=== PATIENT | female | born 1985 | race Caucasian/White ===

== ENCOUNTER 2020-06-09 09:12 | Outpatient (REF) | payer MEDICAID, SELFPAY | END 2020-06-09 09:13 | disposition home or self-care (01) | LOC: HO.MRI 09:12 | PROVIDERS: Visit Provider Family Medicine | DX: Z13.89 Encounter for screening for other disorder (principal) ==

== ENCOUNTER → 2020-07-06 12:30 | Outpatient (BNVA) | payer MEDICAID, SELFPAY | PROVIDERS: Visit Provider Orthopaedic Surgery | DX: M22.2X2 Patellofemoral disorders, left knee (principal); S83.242A Other tear of medial meniscus, current injury, left knee, initial encounter | CPT/HCPCS: 20610; 99202; J1040 ==

== ENCOUNTER 2020-07-24 12:41 | Emergency (ER) | payer OTHER, SELFPAY ==
[2020-07-24 13:00] VITALS: BP 142/80; PULSE 76; PULSE 77; RESP 20; TEMP 37.3; O2SAT 98; O2SAT 99; BMI 46.5
--- NOTE | 2020-07-24 13:27 | XR_ITS ---
EXAMINATION: XR KNEE, LEFT CLINICAL INFORMATION: Left knee pain status post fall, history of patellar fracture. COMPARISON: Left knee MRI dated 06/15/2020. TECHNIQUE: Four views of the left knee. FINDINGS: Mild tricompartmental degenerative joint changes are seen. An osseous density is again seen along the anterior margin of the distal femur. There is no acute fracture or dislocation. Trace patellar joint fluid is seen. Soft tissue fullness is seen without focal abnormality. XR/XR knee LT 4V IMPRESSION: Mild tricompartmental degenerative joint changes. Previously seen osseous fragment anterior to the distal femur appears similar to the MRI findings. No overt acute fracture. Trace suprapatellar joint effusion represents interval decrease from the previous MRI.
--- NOTE | 2020-07-24 13:27 | XR_ITS ---
EXAMINATION: XR ANKLE, LEFT CLINICAL INFORMATION: Left ankle pain status post fall. COMPARISON: None TECHNIQUE: AP, lateral, and mortise views of the left ankle. FINDINGS: The ankle joint and mortise are intact. There is no acute fracture or dislocation. The joint spaces are unremarkable. Small plantar and retrocalcaneal spurs are seen. The tarsal bones are normally aligned. There is moderate soft tissue swelling. XR/XR ankle LT min 3V IMPRESSION: Soft tissue swelling and small degenerative calcaneal spurs. No acute fracture.
[2020-07-24] MEDS: NaPROXEN 500 MG TABLET PO (14:03)
[2020-07-24] MEDS: HYDROcodone Bit/Acetam 5/325 TABLET 1 TAB PO (14:04)
--- NOTE | 2020-07-24 14:16 | ED.FALL ---
HPI - Fall General Chief Complaint: Fall Stated Complaint: FALL BACKWARDS,KNEE PAIN Time Seen by Provider: 07/24/20 13:09 Source: patient and EMS Mode of arrival: EMS Limitations: no limitations History of Present Illness HPI Narrative: 34yoF c PMHx of left knee fracture c tear of meniscus of left knee and Chronic back pain presenting to the ED via EMS after she had a fall [place] [employer] [place] she was walking did not notice that the floor was wet slipped and fell injuring her left knee where she already has the a hairline fracture and a tear of the meniscus along with left ankle injury. Denies head injury or loss of consciousness. Denies any other injuries complaints or concerns at this time. Related Data Home Medications Medication Instructions Recorded Confirmed bupropion HCl PO 07/05/20 gabapentin 100 mg capsule 100 mg PO DAILY 07/05/20 multivitamin 1 tab PO DAILY 07/06/20 Previous Rx's Medication Instructions Recorded naproxen 500 mg PO BID PRN #10 tab 07/24/20 oxycodone-acetaminophen [Percocet] 1 tab PO Q6H PRN #10 tab 07/24/20 Allergies Allergy/AdvReac Type Severity Reaction Status Date / Time No Known Allergies Allergy Unverified 05/06/20 17:07 [No Known Allergies*] Pt states no food/medication Allergy Unknown Uncoded 04/01/20 00:00 a Review of Systems Review of Systems: Constitutional : No changes in activity, No lethargy, No recent prior head injury, No agitation, No increased fussiness ENT/Mouth : No Ear Pain, No Nasal discharge/drainage Eyes: No Eye Pain, No Swelling, No Redness, No Foreign Body, No Vision Changes Cardiovascular : No Chest Pain, No SOB Respiratory : No Cough Gastrointestinal : No Nausea, No Vomiting, No abdominal Pain Genitourinary : No Dysuria, No Urinary Frequency, No Urinary Incontinence, No Urgency, No Flank Pain Musculoskeletal : + joint pain, No neck stiffness, No back pain/injury Skin : No lacerations Neuro : No unsteady gait, No Paresthesias, No Loss of Consciousness, No altered mental status, No Headache Yes all other systems are reviewed and are negative PMFSH Past Medical History Attestation statement: The following information was validated with the patient. 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 Blood pressure normal. Heart rate normal. Respiration rate normal. Temperature normal. Oxygen saturation normal. Appearance: Alert. Oriented X3. No acute distress. Head: Normal external exam. Normocephalic. Atraumatic. No Murphy signs noted. No raccoon eyes noted Eyes: PERRLA. EOMI. Conjunctiva and sclera normal. Eyelids normal. ENT:Pharynx normal. Uvula midline. Moist mucous membranes. Neck: Normal inspection. Neck supple. FROM. No adenopathy. No meningeal signs. No neck mass noted. CVS: Normal heart rate and rhythm. Heart sound normal. No murmurs noted. Pulses normal throughout. Respiratory: No respiratory distress. Painless inspiration. Breath sounds normal. No wheezes/rales/rhonchi noted. Chest nontender. No accessory muscle usage noted or decreased air movement noted. Abdomen: Soft and nontender. Bowel sounds normal in all 4 quadrants. No distention noted. No organomegaly noted. No visible injury noted. Back: Full range of motion noted. Skin: Skin warm and dry. Normal skin color. Normal skin turgor. No rashes/lesions/lacerations noted. Extremities: TTP of left knee at patellar region c mild sts and ecchymosis. Patient reports she has a left meniscus tear. Otherwise no other laxity noted. All other tendons and ligaments appear to be intact. Patient does not have any obvious deformities. No abrasions or lacerations noted. To left ankle lateral aspect there is mild soft tissue swelling with tender to palpation although patient has full range of motion and no obvious deformity ligaments and tendons appear to be intact. No lower extremity edema. Otherwise all other extremities exhibit normal range of motion and nontender. Neuro: Oriented X 3. No motor deficit. No sensory deficit. Reflexes normal. Course Course Course Narrative: 34yoF c PMHx of left knee fracture c tear of meniscus of left knee and Chronic back pain presenting to the ED via EMS after she had a fall [place] [employer] [place] she was walking did not notice that the floor was wet slipped and fell injuring her left knee where she already has the a hairline fracture and a tear of the meniscus along with left ankle injury. - x-ray of left knee obtained and revealed what was shown on her MRI which was the fracture. X-ray of left ankle reveals soft tissue swelling and chronic changes otherwise no acute processes noted. - therefore will DC home with symptomatic treatment along with instructions return if any new or worsening symptoms to follow-up with her primary care provider for further evaluation and treatment possibly an MRI due to she is concerned for tendons and ligaments. Patient understands agrees with this plan. MDM - Fall Medical Records Attestation: I reviewed the patient's medical records. Imaging Data left knee: Attestation: I personally reviewed and interpreted this imaging study as follows: Radiologist's impression: IMPRESSION: Mild tricompartmental degenerative joint changes. Previously seen osseous fragment anterior to the distal femur appears similar to the MRI findings. No overt acute fracture. Trace suprapatellar joint effusion represents interval decrease from the previous MRI. left ankle: Attestation: I personally reviewed and interpreted this imaging study as follows: Radiologist's impression: IMPRESSION: Soft tissue swelling and small degenerative calcaneal spurs. No acute fracture. Discharge Plan Discharge Clinical Impression: Fall Qualifiers: Encounter type: initial encounter Qualified Code(s): W19.XXXA - Unspecified fall, initial encounter Left knee sprain Qualifiers: Encounter type: initial encounter Involved ligament of knee: unspecified ligament Qualified Code(s): S83.92XA - Sprain of unspecified site of left knee, initial encounter Left ankle sprain Qualifiers: Encounter type: initial encounter Involved ligament of ankle: unspecified ligament Qualified Code(s): S93.402A - Sprain of unspecified ligament of left ankle, initial encounter Patient Disposition: Home, Self-Care Instructions: Ankle Sprain (ED), Knee Sprain (ED) Prescriptions: New oxycodone-acetaminophen [Percocet] 5-325 mg tablet 1 tab PO Q6H PRN (Reason: pain) Qty: 10 RF: 0 naproxen 500 mg tablet 500 mg PO BID PRN (Reason: pain) Qty: 10 RF: 0 Referrals: Ethel Krishnan DO [Primary Care Provider] - 2 days Stand Alone Forms: Work/School Release Print Language: Citizen Of [place]
== END 2020-07-24 15:40 | disposition home or self-care (01) ==
PROVIDERS: Emergency Provider Emergency Medicine Emergency Medical Services; PCP Family Medicine
DX: S83.92XA Sprain of unspecified site of left knee, initial encounter (principal); S93.402A Sprain of unspecified ligament of left ankle, initial encounter; W01.0XXA Fall on same level from slipping, tripping and stumbling without subsequent striking against object, initial encounter; Y93.89 Activity, other specified; Y92.512 Supermarket, store or market as the place of occurrence of the external cause; Y99.9 Unspecified external cause status
CPT/HCPCS: 73564; 73610; 99283

== ENCOUNTER → 2020-08-05 09:26 | Outpatient (BNVA) | payer MEDICAID, SELFPAY | PROVIDERS: PCP Family Medicine; Visit Provider Physician Assistant | DX: Z76.89 Persons encountering health services in other specified circumstances (principal) ==

== ENCOUNTER → 2020-08-09 11:30 | Outpatient (BNVA) | payer MEDICAID, SELFPAY | PROVIDERS: PCP Family Medicine; Visit Provider Physician Assistant | DX: Z76.89 Persons encountering health services in other specified circumstances (principal) ==

== ENCOUNTER → 2020-08-10 08:17 | Outpatient (BNVA) | payer MEDICAID, SELFPAY | PROVIDERS: PCP Family Medicine; Visit Provider Physician Assistant | DX: Z76.89 Persons encountering health services in other specified circumstances (principal) ==

== ENCOUNTER → 2020-08-24 08:12 | Outpatient (BNVA) | payer MEDICAID, SELFPAY | PROVIDERS: PCP Family Medicine; Visit Provider Dietitian, Registered | DX: Z76.89 Persons encountering health services in other specified circumstances (principal) ==

== ENCOUNTER → 2020-09-17 08:18 | Outpatient (BNVA) | payer MEDICAID, SELFPAY | PROVIDERS: PCP Family Medicine; Visit Provider Physician Assistant ==

== ENCOUNTER → 2020-10-13 08:13 | Outpatient (BNVA) | payer MEDICAID, SELFPAY | PROVIDERS: PCP Family Medicine; Visit Provider Physician Assistant ==

== ENCOUNTER → 2020-10-22 08:06 | Outpatient (BNVA) | payer MEDICAID, SELFPAY | PROVIDERS: PCP Family Medicine; Visit Provider Dietitian, Registered ==

== ENCOUNTER → 2020-10-27 09:11 | Outpatient (BNVA) | payer MEDICAID, SELFPAY | PROVIDERS: PCP Family Medicine; Visit Provider Physician Assistant ==

== ENCOUNTER → 2020-10-29 08:01 | Outpatient (BNVA) | payer MEDICAID, SELFPAY | PROVIDERS: PCP Family Medicine; Visit Provider Physician Assistant ==

== ENCOUNTER → 2020-11-11 09:58 | Outpatient (BNVA) | payer MEDICAID, SELFPAY | PROVIDERS: PCP Family Medicine; Visit Provider Dietitian, Registered ==

== ENCOUNTER → 2020-11-12 08:12 | Outpatient (BNVA) | payer MEDICAID, SELFPAY | PROVIDERS: PCP Family Medicine; Visit Provider Surgery ==

== ENCOUNTER → 2020-11-16 12:52 | Outpatient (BNVA) | payer MEDICAID, SELFPAY | PROVIDERS: PCP Family Medicine; Visit Provider Dietitian, Registered ==

== ENCOUNTER 2020-11-17 09:13 | Outpatient (REF) | payer MEDICAID, SELFPAY ==
--- NOTE | ~2020-11-17 | XR_ITS ---
EXAMINATION: XR CHEST CLINICAL INFORMATION: Obesity COMPARISON: Previous chest x-ray June 2019 TECHNIQUE: 2 views of the chest were obtained. FINDINGS: The cardiac and mediastinal contours are normal. The lungs are clear. There is no pleural effusion or pneumothorax. There are mild degenerative changes of the spine. XR/XR chest 2V IMPRESSION: No evidence for acute disease in the chest.
--- NOTE | 2020-11-17 09:35 | ECG_ITS ---
Test Reason : MORBID OBESITY Blood Pressure : / mmHG Vent. Rate : 061 BPM Atrial Rate : 061 BPM P-R Int : 150 ms QRS Dur : 094 ms QT Int : 388 ms P-R-T Axes : 038 045 018 degrees QTc Int : 390 ms Normal sinus rhythm with sinus arrhythmia Normal ECG When compared with ECG of 27-JUN-2019 22:26, QT has shortened Referred By: Uriel Baltazar Electronically Signed By:Adilson Louise
[2020-11-17 10:03] LABS: MANUAL DIFF FLAG NO
[2020-11-17 10:21] LABS: Basophils Absolute Auto 0.1 X10*3/uL (0.0-0.2); Basophils Percent Auto 0.6 % (0-2); Eosinophils Absolute Auto 0.2 X10*3/uL (0.0-0.4); Eosinophils Percent Auto 1.8 % (0-4); Hematocrit 41.6 % (37-47); Hemoglobin 13.4 g/dl (12.0-16.0); Imm Gran Abs Auto 0.02 X10*3/uL (0.00-0.03); Imm Gran Pct Auto 0.2 % (0.0-0.4); Lymphocytes Absolute Auto 3.2 X10*3/uL (1.2-4.9); Lymphocytes Percent Auto 36.6 % (20-40); Mean Corpuscular HGB Conc 32.2 g/dl (31.0-35.0); Mean Corpuscular Hemoglobin 27.3 pg (27.0-33.0); Mean Corpuscular Volume 84.7 fL (80-98); Mean Platelet Volume 8.5 fL (9.4-12.3); Monocytes Absolute Auto 0.6 X10*3/uL (0.1-1.2); Monocytes Percent Auto 6.3 % (2-11); Neutrophils Absolute Auto 4.8 X10*3/uL (2.0-8.3); Neutrophils Percent Auto 54.5 % (45-73); Platelet Count 351 X10*3/uL (160-400); Red Blood Count 4.91 X10*6/uL (4.20-5.50); Red Cell Distribution Width 14.4 % (11.0-16.0); White Blood Count 8.8 X10*3/uL (4.8-10.8)
[2020-11-17 10:28] LABS: Alanine Aminotransferase 39 U/L (0-31); Alkaline Phosphatase 65 U/L (39-117); Anion Gap 13 (12-20); Aspartate Amino Transferase 26 U/L (5-31); Bilirubin Total 0.4 mg/dL (0.0-1.0); Blood Urea Nitrogen 10 mg/dL (9-16); Calcium 9.1 mg/dL (8.4-10.2); Carbon Dioxide 25 mmol/L (22-29); Chloride 106 mmol/L (96-108); Cholesterol 170 mg/dL; Estimated Glomerular Filt Rate > 60; Glucose Random 100 mg/dL (60-115); HDL Cholesterol 45 mg/dL; Iron 45 mcg/dL (30-160); LDL Cholesterol Calculated 103 mg/dl; Percent Iron Saturation 12 % (15-50); Potassium 3.9 mmol/L (3.3-5.1); Sodium 140 mmol/L (135-145); Total Iron Binding Capacity 377 mcg/dL (228-428); Total Protein 7.5 g/dL (6.5-8.0); Triglycerides 110 mg/dL; Unsaturated Iron Binding 332 ug/dL
[2020-11-17 10:35] LABS: Estimated Average Glucose 100 mg/dL; Hemoglobin A1c % 5.1 %
[2020-11-17 10:53] LABS: Ferritin 12 ng/mL (10-122); TSH reflex Free T4 1.82 uIU/mL (0.32-4.0); Vitamin D 25-OH Total 44.5 ng/mL (>30)
[2020-11-17 10:54] LABS: Folate > 20.0 ng/mL (> or = 4.0); Vitamin B12 504 pg/mL (200-900)
[2020-11-18 09:51] LABS: Insulin Level Total 12.7 uIU/mL
[2020-11-18 17:31] LABS: Calcium (PTHI) 9.3 mg/dL (8.6-10.2); PTHI 36 pg/mL (14-64)
[2020-11-19 19:56] LABS: Zinc 85 mcg/dL (60-130)
[2020-11-20 01:07] LABS: Vitamin A 36 mcg/dL (38-98)
[2020-11-21 12:22] LABS: Vitamin B1 18 nmol/L (8-30)
== END 2020-11-17 09:14 | disposition home or self-care (01) ==
LOC: HO.LAB 09:13
PROVIDERS: Absent Provider Physician Assistant; PCP Family Medicine; Visit Provider Surgery
DX: Z00.01 Encounter for general adult medical examination with abnormal findings (principal); E66.01 Morbid (severe) obesity due to excess calories; Z68.35 Body mass index [BMI] 35.0-35.9, adult; Z98.890 Other specified postprocedural states; Z90.3 Acquired absence of stomach [part of]; Z98.84 Bariatric surgery status
CPT/HCPCS: 36415; 71046; 80053; 80061; 82306; 82607; 82728; 82746; 83036; 83525; 83540; 83970; 84425; 84443; 84590; 84630; 85025; 86140; 93005

== ENCOUNTER → 2020-12-03 08:20 | Outpatient (BNVA) | payer MEDICAID, SELFPAY | PROVIDERS: PCP Family Medicine; Visit Provider Surgery ==

== ENCOUNTER → 2020-12-06 10:12 | Outpatient (BNVA) | payer MEDICAID, SELFPAY | PROVIDERS: PCP Family Medicine; Visit Provider Physician Assistant ==

== ENCOUNTER → 2020-12-13 07:15 | Outpatient (BNVA) | payer MEDICAID, SELFPAY | PROVIDERS: PCP Family Medicine; Visit Provider Surgery ==

== ENCOUNTER 2021-04-09 17:20 | Emergency (ER) | payer MEDICAID, SELFPAY ==
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
[2021-04-09 17:40] VITALS: RESP 18; BMI 36.0
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
--- NOTE | 2021-04-09 18:40 | PC.NURSE ---
BHN referral made via Smart Sheet
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
[2021-04-09 20:13] LABS: COVID-19 Test Negative (Negative)
--- NOTE | 2021-04-09 20:20 | PC.NURSE ---
PT SITTING UPRIGHT ON CHAIR IN POD, RR EVEN UNLABORED, SKIN WPD, NAD, PT OFFERS NO ACUTE COMPLAINTS, PROVIDED W/ FOOD PER PT REQUEST. PT AWAITING BHN EVAL, AWARE/AGREEABLE TO PLAN OF CARE.
[2021-04-09 22:00] VITALS: RESP 18
--- NOTE | 2021-04-09 23:29 | PC.NURSE ---
PT IS BEING EVALUATED BY N AT THE MOMENT.
--- NOTE | 2021-04-10 00:05 | PC.NURSE ---
Pt was evaluated by ga. pt is clam and cooperative. Plan is for pt to be discharged home. Pt is being changed over at this time, awaiting a ride.
--- NOTE | 2021-04-10 00:13 | PC.NURSE ---
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 discharge paper work given and education.
== END 2021-04-10 00:16 | disposition home or self-care (01) ==
PROVIDERS: Nurse Practitioner Family; Emergency Provider Emergency Medicine
DX: F43.20 Adjustment disorder, unspecified (principal); F41.9 Anxiety disorder, unspecified; Z63.79 Other stressful life events affecting family and household; Z79.899 Other long term (current) drug therapy; Z20.822 Contact with and (suspected) exposure to COVID-19
CPT/HCPCS: 36415; 87635; 99284

== ENCOUNTER → 2021-04-28 08:10 | Outpatient (BNVA) | payer MEDICAID, SELFPAY | PROVIDERS: Visit Provider Physician Assistant Surgical ==

== ENCOUNTER → 2021-05-11 10:26 | Outpatient (BNVA) | payer MEDICAID, SELFPAY | PROVIDERS: PCP Family Medicine; Referring Provider Family Medicine; Visit Provider Physician Assistant Surgical | DX: E66.01 Morbid (severe) obesity due to excess calories (principal); Z68.43 Body mass index [BMI] 50.0-59.9, adult | CPT/HCPCS: 99212 ==

== ENCOUNTER → 2021-06-13 10:42 | Outpatient (BNVA) | payer MEDICAID, SELFPAY | PROVIDERS: PCP Family Medicine; Referring Provider Family Medicine; Visit Provider Physician Assistant Surgical | DX: E66.01 Morbid (severe) obesity due to excess calories (principal); Z68.43 Body mass index [BMI] 50.0-59.9, adult | CPT/HCPCS: 99212 ==

== ENCOUNTER → 2021-07-29 08:05 | Outpatient (BNVA) | payer MEDICAID, SELFPAY | PROVIDERS: PCP Family Medicine; Visit Provider Physician Assistant Surgical ==

== ENCOUNTER 2021-08-23 08:52 | Outpatient (REF) | payer MEDICAID, SELFPAY ==
[2021-08-23 11:09] LABS: Binax Internal Control QC Valid; Binax Lot number: 9864; Binax Now Covid-19 Ag Positive (Negative)
== END 2021-08-23 08:53 | disposition home or self-care (01) ==
LOC: HO.LAB 08:52
PROVIDERS: Visit Provider Internal Medicine
DX: Z20.822 Contact with and (suspected) exposure to COVID-19 (principal)
CPT/HCPCS: 36415; C9803

== ENCOUNTER 2021-12-13 07:23 | Outpatient (REF) | payer MEDICAID, SELFPAY ==
--- NOTE | ~2021-12-13 | XR_ITS ---
EXAMINATION: XR KNEE STANDING, BILATERAL XR KNEE, LEFT CLINICAL INFORMATION: Left knee pain. COMPARISON: None TECHNIQUE: AP bilateral knee standing. Left knee lateral and sunrise view. FINDINGS: BILATERAL AP KNEE: There is loss of medial compartment joint space both knees slightly greater on the left side with periarticular spurring in medial and lateral compartments. No bony fracture or dislocation. No lytic process. LEFT KNEE: There is a large osteophyte along the patellofemoral joint with minimal suprapatellar spurring. No fracture or loose body seen. XR/XR knee standing BI IMPRESSION: Significantly large enthesophyte along the patellofemoral joint space left knee. No loose bodies or fracture seen. Degenerative changes medial compartment both knees.
--- NOTE | ~2021-12-13 | XR_ITS ---
EXAMINATION: XR KNEE STANDING, BILATERAL XR KNEE, LEFT CLINICAL INFORMATION: Left knee pain. COMPARISON: None TECHNIQUE: AP bilateral knee standing. Left knee lateral and sunrise view. FINDINGS: BILATERAL AP KNEE: There is loss of medial compartment joint space both knees slightly greater on the left side with periarticular spurring in medial and lateral compartments. No bony fracture or dislocation. No lytic process. LEFT KNEE: There is a large osteophyte along the patellofemoral joint with minimal suprapatellar spurring. No fracture or loose body seen. XR/XR knee LT 2V IMPRESSION: Significantly large enthesophyte along the patellofemoral joint space left knee. No loose bodies or fracture seen. Degenerative changes medial compartment both knees.
== END 2021-12-13 07:24 | disposition home or self-care (01) ==
LOC: HO.HOSX 07:23
PROVIDERS: Visit Provider Physician Assistant
DX: M22.2X2 Patellofemoral disorders, left knee (principal); I10 Essential (primary) hypertension
CPT/HCPCS: 20610; 73560; 73565; 99212; J1040

== ENCOUNTER 2022-02-03 16:19 | Emergency (ER) | payer MEDICAID, SELFPAY ==
--- NOTE | ~2022-02-03 | US_ITS ---
EXAMINATION: US VENOUS ULTRASOUND WITH DOPPLER LOWER EXTREMITY, BILATERAL CLINICAL INFORMATION: Bilateral leg swelling. Evaluate for DVT. COMPARISON: Lower extremity vascular ultrasound 01/30/2020 TECHNIQUE: Ultrasound of the deep veins is performed from the hip to the calf with compression sonography and color and pulse Doppler assessment. Spectral analysis with color-flow imaging is performed. FINDINGS: RIGHT: There is normal venous compression and respiratory variation and augmented flow. The visualized common femoral vein, superficial femoral vein, profunda femoral vein, popliteal vein, and the trifurcation region shows no evidence of deep venous thrombosis. LEFT: There is normal venous compression and respiratory variation and augmented flow. The visualized common femoral vein, superficial femoral vein, profunda femoral vein, popliteal vein, and the trifurcation region shows no evidence of deep venous thrombosis. US/US venous duplex LE BI IMPRESSION: No evidence of DVT in the bilateral lower extremities.
[2022-02-03 16:25] VITALS: BP 146/92; PULSE 90; RESP 18; TEMP 36.8; O2SAT 96; BMI 45.9
--- NOTE | 2022-02-03 16:43 | ED.EXTPRO ---
HPI - Extremity Problem General Chief complaint: Extremity Problem Stated complaint: swollen feet/legs Time Seen by Provider: 02/03/22 16:41 Source: patient Mode of arrival: ambulatory Limitations: no limitations History of Present Illness HPI Narrative: This is a 36-year-old female with history of obesity, as well as leg swelling, for which she was formerly on Lasix, who complains of recent swelling in her feet. The patient previously had leg swelling but now notes swelling in her feet. 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 She denies any chest pain or shortness of breath. She denies any new pain in her legs. She talked her primary care physician recommended she come to the ED for rule out of DVT. She has had prior varicose vein procedures. She denies any history of hypertension or diabetes Related Data Home Medications Medication Instructions Recorded Confirmed bupropion HCl [Wellbutrin] PO 07/05/20 07/29/21 gabapentin 100 mg capsule 100 mg PO BID 07/05/20 07/29/21 multivitamin (Daily Multi-Vitamin) 1 tab PO DAILY 07/06/20 07/29/21 cholecalciferol (vitamin D3) 50 50 mcg PO DAILY 08/10/20 07/29/21 mcg (2,000 unit) capsule biotin 1 mg tablet 1 mg PO DAILY 12/10/20 07/29/21 Allergies Allergy/AdvReac Type Severity Reaction Status Date / Time No Known Allergies Allergy Verified 06/13/21 10:52 [No Known Allergies*] Review of Systems Review of Systems: Yes all other systems are reviewed and are negative Constitutional: Constitutional: Reports as per HPI and Denies fever(s) Eyes: Eyes: Reports as per HPI and Reports no additional eye complaints ENT: Reports system reviewed and no additional complaints, except as documented, Reports as per HPI, Denies nasal congestion, Denies nasal discharge and Denies sore throat Cardiovascular: Cardiovascular: Reports as per HPI, Denies chest pain and Denies dyspnea Respiratory: Respiratory: Reports as per HPI, Denies cough and Denies dyspnea Gastrointestinal: Gastrointestinal: Reports as per HPI, Denies abdominal pain, Denies diarrhea and Denies vomiting Genitourinary: Genitourinary: Reports as per HPI, Denies hematuria, Denies urinary frequency and Denies dysuria Musculoskeletal: Musculoskeletal: Reports no additional musculoskeletal complaints and Denies numbness Integumentary/Breasts: Skin/Breast: Reports as per HPI and Denies rash Neurologic: Reports as per HPI, Denies focal weakness and Denies numbness Psychiatric: Psychiatric: Reports no additional psychiatric complaints and Reports as per HPI Endocrine: Endocrine: Reports no additional endocrine complaints and Reports as per HPI Hematologic/Lymphatic: Hematologic/Lymphatic: Reports no additional hematologic/lymphatic complaints, Reports as per HPI and Reports other (No peripheral edema) Comments: Bilateral leg swelling, foot swelling PMFSH Past Medical History Medical History (Reviewed 12/13/21 @ 13:50 by Mary Ann Donahue [facility]) Anxiety Arthritis Cervical cancer Chronic back pain Depression Encounter for Essure implantation Hx gestational diabetes Snoring Surgical History (Reviewed 12/13/21 @ 13:50 by Mary Ann Donahue [facility]) History of breast augmentation History of tonsillectomy and adenoidectomy Previous section Family History Family History Mother No problems noted. Father No problems noted. Sister No problems noted. Sister No problems noted. Brother No problems noted. Brother No problems noted. Son No problems noted. Daughter No problems noted. 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 No actual edema noted to the feet rather the tissue is soft and findings seem consistent with obesity Neuro alert and oriented x 3, non focal MDM - Extremity (Nontraumatic) MDM Narrative Medical decision making narrative: Patient complains of swelling in her legs, is morbidly obese. No asymmetry of the legs. Patient is concerned that her feet seemed swollen however on exam I do not appreciate any edema in her feet rather I think they are largely to her obesity as skin is normal in color, soft to touch, not pitting overall. Bilateral ultrasound of legs was negative for DVT. Patient inquired about going back on a diuretic but at this point I do not believe she actually has edema, recommended a low carbohydrate diet, regular exercise, leg elevation, PCP follow-up Imaging Data Ultrasound venous bilateral lower extremities: Radiologist's impression: IMPRESSION: No evidence of DVT in the bilateral lower extremities. Discharge Plan Discharge Clinical Impression: Leg swelling Patient Disposition: Home, Self-Care Instructions: Leg Edema (ED) Additional Instructions: Try to keep your legs elevated as often as possible. Try to go on a low carbohydrate and get regular exercise, lose weight. Use compression stockings. Return for any new or worsened symptoms. Follow up with your primary care physician. Prescriptions: No Action biotin 1 mg Tablet 1 mg PO DAILY cholecalciferol (vitamin D3) 50 mcg (2,000 unit) capsule 50 mcg PO DAILY bupropion HCl PO gabapentin 100 mg capsule 100 mg PO BID multivitamin [Daily Multi-Vitamin] Tablet 1 tab PO DAILY Interventions: ED Discharge Assessment Last Done: 02/03/22 18:43 Discharge Date/Time: 02/03/22 18:44
== END 2022-02-03 18:44 | disposition home or self-care (01) ==
PROVIDERS: Emergency Provider Emergency Medicine; PCP Family Medicine
DX: M79.89 Other specified soft tissue disorders (principal); E66.01 Morbid (severe) obesity due to excess calories
CPT/HCPCS: 93970; 99283; 99284

== ENCOUNTER → 2022-03-14 12:50 | Outpatient (BNVA) | payer MEDICAID, SELFPAY | PROVIDERS: PCP Family Medicine; Visit Provider Physician Assistant | DX: M67.432 Ganglion, left wrist (principal) | CPT/HCPCS: 99202 ==

== ENCOUNTER → 2022-05-02 12:34 | Outpatient (BNVA) | payer MEDICAID, SELFPAY | PROVIDERS: PCP Family Medicine; Visit Provider Physician Assistant | DX: M67.432 Ganglion, left wrist (principal) | CPT/HCPCS: 99212 ==

== ENCOUNTER → 2022-07-12 11:50 | Outpatient (BNVA) | payer MEDICAID, SELFPAY | PROVIDERS: PCP Family Medicine; Visit Provider Orthopaedic Surgery | DX: M67.432 Ganglion, left wrist (principal) | CPT/HCPCS: 99212 ==

== ENCOUNTER → 2022-08-23 14:47 | Outpatient (BNVA) | payer MEDICAID, SELFPAY | PROVIDERS: PCP Family Medicine; Visit Provider Orthopaedic Surgery | DX: M67.432 Ganglion, left wrist (principal); R20.0 Anesthesia of skin | CPT/HCPCS: 99212 ==

== ENCOUNTER 2022-08-28 06:08 | Day surgery (SDC) | payer MEDICAID, SELFPAY ==
[2022-08-23 16:30] VITALS: BMI 45.9
[2022-08-28 06:18] VITALS: BMI 43.0
[2022-08-28 06:26] VITALS: BP 152/91; PULSE 86; RESP 16; TEMP 36.3; O2SAT 96
[2022-08-28 06:33] LABS: UPreg QC Valid YES; Urine Pregnancy NEGATIVE (NEGATIVE)
[2022-08-28] MEDS: Lactated Ringers 1,000 ML 50 ML IVCONT (06:43)
--- NOTE | 2022-08-28 07:23 | P.CONAN_ITS ---
[facility] Active Problems Active Problems: All Active Problems (Updated 08/23/22 @ 16:27 by Azalea Malin, RN) Patellofemoral pain syndrome of left knee (Acute) Tear of medial meniscus of left knee (Acute) Depression (Acute) Morbid obesity (Acute) Arthritis (Acute) Snoring (Acute) Laceration of left lower leg with tendon involvement (Acute) Morbid obesity (Acute) Adjustment disorder, unspecified (Acute) Vitamin A deficiency (Acute) Morbid obesity with BMI of 50.0-59.9, adult (Acute) Ganglion, left wrist (Acute) Ganglion cyst of volar aspect of left wrist (Acute) Numbness of left hand (Acute) Chronic back pain (Acute) Previous section (Acute) History of breast augmentation (Acute) Encounter for Essure implantation (Acute) Past Medical History Medical History (Updated 08/23/22 @ 16:27 by Azalea Malin, RN) Anemia Anxiety Arthritis Cervical cancer Chronic back pain Depression Encounter for Essure implantation Gout Hx gestational diabetes Obesity Snoring Family History Family History Mother No problems noted. Father No problems noted. Sister No problems noted. Sister No problems noted. Brother No problems noted. Brother No problems noted. Son No problems noted. Daughter No problems noted. Family history of problems with anesthesia: No Surgical History Surgical History History of breast augmentation History of tonsillectomy and adenoidectomy Previous section History of Problems with Anesthesia: No Social History Social History Are you a primary healthcare network pricing consultant to a significant other at home: No Do you presently have visiting nurse or other home services: No Patient Tobacco Use Status: Former Tobacco user Tobacco use type: Cigarette Use of substances other than those prescribed or required for medical reasons: No Advance Directives: No Advance Directives Information Provided: Yes Current occupational status: employed 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 Meds Allergies Allergy/AdvReac Type Severity Reaction Status Date / Time No Known Allergies Allergy Verified 08/23/22 15:28 [No Known Allergies*] Active Medications: Current Medications Lactated Ringer's (Lr) 1,000 mls @ 50 mls/hr IVCONT .Q20H LOW Last Admin: 08/28/22 06:43 Dose: 50 mls/hr Home Medications Medication Instructions Recorded Confirmed Last Taken Type gabapentin 100 mg capsule 100 mg PO BID 07/05/20 08/23/22 Unknown History multivitamin (Daily Multi-Vitamin 1 tab PO DAILY 07/06/20 08/23/22 Unknown History tablet) cholecalciferol (vitamin D3) 50 50 mcg PO DAILY 08/10/20 08/23/22 Unknown History mcg (2,000 unit) capsule biotin 1 mg tablet 1 mg PO DAILY 12/10/20 08/23/22 Unknown History bupropion HCl 300 mg 24 hr tablet, 1 tab PO QAM 08/23/22 08/23/22 Unknown History extended release ferrous sulfate 325 mg (65 mg 1 tab PO DAILY 08/23/22 08/23/22 Unknown History iron) tablet Exam Exam Date and Time: August 28, 2022 0723 Height,Weight and Vital Signs: Height 5 ft 10 in Weight 136.078 kg Last Vital Signs Temp 97.3 F 08/28/22 06:26 Pulse 86 08/28/22 06:26 Resp 16 08/28/22 06:26 BP 152/91 H 08/28/22 06:26 Pulse Ox 96 08/28/22 06:26 O2 Del Method 08/28/22 06:26 Pertinent Lab Results Pertinent Lab Results: Laboratory Tests 08/28/22 06:15 Urine Test NEGATIVE Airway Mallampati Class: III TM Dist: >3cm Neck ROM: Full Assessment and Plan Assessment Anesthesia Assessment: Anesthesia Plan Discussed and Chart Reviewed Final Anesthetic Review Family History of Problems with Anesthesia: No History of Problems with Anesthesia: No NPO: Yes ASA Class: III Final Preanesthetic Review: No Changes in Pt Med Stat, Meds/Allgs Chart Reviewed, Consent Obtained/Reviewed and Anes Risks/Benef Reviewed Patient Risk: Intermediate Procedure Risk: Low Anesthetic Plan Anesthetic Plan: GA Disposition: Standard PACU
--- NOTE | 2022-08-28 07:55 | MHC.SHP ---
Pre-Procedural Eval Section A Date of Service: 08/28/22 The patient is an INPATIENT: No Changes since office visit: No Cold of Flu in the past 2 weeks, No New Medical Problems, No Changes in Medication and No Patient answered all questions The History & Physical has been completed within 30 days and I have reviewed it.: Yes Section B Chief Complaint: Ganglion, left wrist Allergies: Allergies Allergy/AdvReac Type Severity Reaction Status Date / Time No Known Allergies Allergy Verified 08/23/22 15:28 [No Known Allergies*] Plan I have reviewed the history and physical and performed a pertinent physical examination on my patient. No changes have occurred unless specified. Time Spent With Patient Time: Total time managing care of this patient today ____ minutes.
--- NOTE | 2022-08-28 07:56 | W.PM.OPN ---
Operative Note Operative Note Date of Service: 08/28/22 Narrative: Operative Note Narrative: Preop diagnosis: 1. left Volar wrist ganglion Postop diagnosis: 1. Left volar wrist mass Procedure: 1. left Volar wrist mass excision Surgeon: Kirti Farrell MD Anesthesia: General Anesthesia Findings: approximately 1 cm diameter yellow fatty mass, possible lipoma. No ganglion was found. Implants: None Tourniquet time: 5 minutes EBL: 5.0 ml Specimen: Volar wrist mass Drains: None Complications: None Disposition: Brought to the recovery room in stable condition Plan: Follow-up in 10-14 days for wound check, suture removal and to check pathology Indications: The patient is 36 years old with her left volar wrist mass . The risks and benefits of operative treatment, including but not limited to risk of damage to blood vessels, nerves, tendons, infection, recurrence, persistent pain or numbness, incomplete resolution of preoperative symptoms, or need for further surgery were discussed with the patient and they wished to proceed with surgery. Procedure: Once consent was obtained patient was brought back to the operating suite and placed in the operating table in a supine position. A regional block was performed by the anesthesia team. Perioperative antibiotics and anesthesia was administered by the anesthesia team. A tourniquet was applied to the proximal aspect of the left upper extremity and the limb was prepped and draped in a standard surgical fashion. The limb was elevated exsanguinated with Esmarch bandage and the tourniquet inflated to 250 mm of mercury for a total tourniquet time of 5 minutes. a 1.5 cm transverse incision was made directly over the mass, which was over the volar aspect of the patient's left wrist in line with the palmaris longus tendon. Incision was made through the skin to the subcutaneous tissues using a 15. Blade. There we appreciated a mass of yellow fat that measured approximately 1 cm in diameter. It was rather easily dissected free from the surrounding tissue, and there was no evidence of nerve or neuroma within the mass. The mass was excised and placed on the back table to be sent for histopathology. No other masses were appreciated in the area. At this point the tourniquet was deflated and hemostasis obtained with a brief period of local pressure. The wound was copiously irrigated with normal saline. The skin edges were reapproximated with 5-0 nylon suture. The wound was infiltrated with some 0.5% plain ropivacainefor postop pain control and a sterile dressing was applied. The patient appears to have tolerated the procedure well and with no complications. All digits were well vascularized conclusion of the case.
[2022-08-28 08:36] VITALS: BP 126/88; PULSE 79; RESP 16; TEMP 36.6; O2SAT 98
[2022-08-28 08:41] VITALS: BP 119/86; PULSE 68; RESP 16; O2SAT 98
[2022-08-28 08:46] VITALS: BP 117/80; PULSE 72; RESP 16; O2SAT 99
[2022-08-28 08:51] VITALS: BP 125/80; PULSE 78; RESP 16; O2SAT 95
[2022-08-28 09:06] VITALS: BP 117/79; PULSE 76; RESP 16; TEMP 36.6; O2SAT 96
== END 2022-08-28 09:46 | disposition home or self-care (01) ==
PROVIDERS: Anesthesiology; PCP Family Medicine; Visit Provider Orthopaedic Surgery
PROC: (CPT 11402; principal; 2022-08-28 07:30)
DX: R22.32 Localized swelling, mass and lump, left upper limb (principal); R20.0 Anesthesia of skin; D64.9 Anemia, unspecified; M10.9 Gout, unspecified; Z87.891 Personal history of nicotine dependence; Z79.899 Other long term (current) drug therapy
CPT/HCPCS: 11402; 81025; 88304; J0171; J0690; J1100; J2250; J2405; J2795; J3010

== ENCOUNTER → 2022-08-29 11:29 | Outpatient (BNVA) | payer MEDICAID, SELFPAY | PROVIDERS: PCP Family Medicine; Visit Provider Physician Assistant | DX: S83.242D Other tear of medial meniscus, current injury, left knee, subsequent encounter (principal); M22.2X2 Patellofemoral disorders, left knee | CPT/HCPCS: 20610; 99212; J1020 ==

== ENCOUNTER → 2022-09-12 15:24 | Outpatient (BNVA) | payer MEDICAID, SELFPAY | PROVIDERS: PCP Family Medicine; Visit Provider Orthopaedic Surgery | DX: Z13.89 Encounter for screening for other disorder (principal) ==

== ENCOUNTER 2023-04-12 11:03 | Outpatient (AMB) | payer MEDICAID, SELFPAY ==
[2023-04-12 11:03] VITALS: BP 140/86; PULSE 92; O2SAT 96; BMI 47.1
--- NOTE | 2023-04-12 11:03 | MHC.OFFVIS ---
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 Pt states she has them in both legs but her left is worse than her right. She states since she has been walking more lately she notices they have goe down in size a little bit. She states they aren't really painful but whn she walks a lot her legs feel heavy. Pt denies any numbness or tingling in her legs or feet. 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 Complaints include pain over varicosities, swelling of lower extremities, cramping, fatigue, and heaviness of the lower extremities. 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 It is noted more so in left leg. Patient notes prior venous ablation is by Dr. Alverto No at [facility] Patient denies any history of DVT/ PE. Patient denies any history of phlebitis. Trial of compression includes - prescription compression that her open toed They now present for vascular evaluation regarding their varicose veins. [facility] Medical History Anemia Anxiety Arthritis Cervical cancer Chronic back pain Depression Encounter for Essure implantation Gout Hx gestational diabetes Obesity Snoring Surgical History History of breast augmentation History of tonsillectomy and adenoidectomy Previous section Family History Mother No problems noted. Father No problems noted. Sister No problems noted. Sister No problems noted. Brother No problems noted. Brother No problems noted. Son No problems noted. Daughter No problems noted. 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 Review of Systems Const Reports as per HPI ENT Reports no additional complaints Card Denies chest pain, Denies chest pain at rest and Denies chest pain with activity Resp Denies chest congestion and Denies cough GI Reports no additional complaints Musc Details: pain over varicosities, aching of lower extremities, swelling, cramping, heaviness and tiredness, itching Denies abnormal gait Skin/Breast Reports pruritus and Denies wounds Neuro Reports no additional complaints and Denies abnormal gait Psych Denies no additional complaints Physical Exam Vital Signs: Last Vital Signs Pulse 92 04/12/23 11:03 BP 140/86 H 04/12/23 11:03 Pulse Ox 96 04/12/23 11:03 Oxygen Delivery Method Room Air 04/12/23 11:03 BMI result Body Mass Index 47.1 Const General: cooperative, healthy appearing and comfortable Orientation/consciousness: oriented to person, oriented to place and oriented to time Neck Carotids: no bruits Chest Chest palpation & inspection: normal inspection of the chest and normal palpation of entire chest wall Resp Effort & Inspection: normal respiratory effort and able to speak in complete sentences Cardio Rate: regular rate Heart sounds: S1 normal heart sound present and S2 normal heart sound present Peripheral pulses: Peripheral pulses 2+ throughout GI Inspection: Yes normal to inspection Skin Other: +2 edema, large rope-like varicosities greater than 4 mm CEAP Classification C4 - skin color changes Ep - Etiology Primary As - superficial veins P - reflux General skin exam: dry skin Neuro General: oriented to person, oriented to place and oriented to time Extrem Right lower extremity: full ROM, normal capillary refill and edema Left lower extremity: full ROM, normal capillary refill and edema Psych Mental Status: mental status grossly normal Assessment & Plan Assessment & Plan (1) Varicose veins of left lower extremity with inflammation: Code(s): I83.12 - Varicose veins of left lower extremity with inflammation Plan: In short, the patient has evidence of venous insufficiency. I have discussed the pathophysiology with the patient. In addition I have provided informational material regarding venous disease to the patient. We have discussed conservative measures including compression, elevation, and exercise. I have also provided a handout regarding appropriate use of compression stockings and where to purchase good compression stockings as well. I have taken the liberty of ordering venous insufficiency testing with the patient. They will follow up with me after testing. The patient had an opportunity to ask questions regarding the treatment plan. All questions were answered. Imaging studies, laboratory studies and physical exam results were discussed and reviewed in detail. No major barriers to understanding were identified. The patient expressed understanding and agreement with the above treatment plan. The patient is aware they should contact our office by phone for worsening of the current condition or the appearance of new symptoms. Thank you for allowing me to participate in the vascular care of this patient. If you have any questions or concerns regarding the treatment for the above condition please do not hesitate to contact me. The office telephone contact is [phone]. This note is constructed using voice recognition software. While every effort has been made to ensure accuracy, hvac operations technician errors may have been included. Thank you for allowing me to participate in the care of your patient. Yours sincerely, Charli Huston MD, FACS, R.P.V.I. Orders: Orders US venous duplex LE BI 1 Week I83.12 - Varicose veins of left lower extremity with inflammation Coding Level of Care Code New Pt Level 4 (45108) Diagnoses Varicose veins of left lower extremity with inflammation I83.12
== END 2023-04-12 11:26 | disposition home or self-care (01) ==
PROVIDERS: PCP Family Medicine; Visit Provider Surgery Vascular Surgery
DX: I83.12 Varicose veins of left lower extremity with inflammation (principal)
CPT/HCPCS: 99203

== ENCOUNTER → 2023-04-12 11:03 | Outpatient (BNVA) | payer MEDICAID, SELFPAY | PROVIDERS: PCP Family Medicine; Visit Provider Surgery Vascular Surgery | DX: I83.12 Varicose veins of left lower extremity with inflammation (principal) | CPT/HCPCS: 99202 ==

== ENCOUNTER 2023-04-26 10:16 | Outpatient (REF) | payer MEDICAID, SELFPAY ==
--- NOTE | ~2023-04-26 | US_ITS ---
EXAMINATION: US LOWER EXTREMITY VENOUS (REFLUX EXAM), BILATERAL CLINICAL INDICATION: Varicose veins of the left lower extremity COMPARISON: None. TECHNIQUE: Color flow triplex imaging and compression Doppler was performed to evaluate both the deep and the superficial systems bilaterally. To evaluate the superficial system, the examination was performed in the upright position. Color-flow Doppler ultrasound and compression ultrasound were utilized. In addition, maneuvers were utilized to demonstrate reflux. FINDINGS: RIGHT: 1. DEEP VENOUS ULTRASOUND OF THE RIGHT LOWER EXTREMITY: Common Femoral Vein: Compressible, normal respiratory variation and augmented flow. Popliteal Vein: Compressible, normal augmentation. Deep Venous Reflux: There is no evidence of reflux in the deep system in either the common femoral vein or the popliteal vein. There is no evidence of a Mauro's cyst. 2. SUPERFICIAL ULTRASOUND WITH DOPPLER OF RIGHT LOWER EXTREMITY: RIGHT GREAT SAPHENOUS VEIN: Saphenofemoral Junction: 11 mm. No reflux. Proximal Thigh: 6 mm. No reflux. Mid Thigh: 6 mm. No reflux. Above Knee: 5 mm. No reflux. Below Knee: 4 mm. No reflux. Mid Calf: 5 mm. No reflux. Ankle: 5 mm. No reflux. DUPLICATED GREAT SAPHENOUS VEIN: Yes, laterally. RIGHT SMALL SAPHENOUS VEIN: Proximal: 4 mm. No reflux. Distal: 3 mm. No reflux. LEFT: 1. DEEP VENOUS ULTRASOUND OF THE LEFT LOWER EXTREMITY: Common Femoral Vein: Compressible, normal respiratory variation and augmented flow. Popliteal Vein: Compressible, normal augmentation. Deep Venous Reflux: There is no evidence of reflux in the deep system in either the common femoral vein or the popliteal vein. There is no evidence of a Mauro's cyst. 2. SUPERFICIAL ULTRASOUND WITH DOPPLER OF LEFT LOWER EXTREMITY: LEFT GREAT SAPHENOUS VEIN: Saphenofemoral Junction: 8 mm. No reflux. Proximal Thigh: Not seen mm. Mid Thigh: Not seen mm. Above Knee: Not seen mm. Below Knee: Not seen mm. Mid Calf: Not seen mm. Ankle: Not seen mm. DUPLICATED GREAT SAPHENOUS VEIN: Yes, medially. Saphenofemoral junction: 4 mm. No reflux Mid thigh: 4 mm. No reflux LEFT SMALL SAPHENOUS VEIN: Proximal: 3 mm. 3496 ms reflux. Distal: 2 mm. No reflux. US/US venous duplex LE BI IMPRESSION: 1. No evidence of bilateral lower extremity DVT. 2. Prolonged reflux within the left small saphenous-popliteal junction. Abnormal lower extremity venous reflux times: Superficial and deep calf veins: >500 ms Femoropopliteal veins: >1000 ms Perforating veins: >350 ms Labkirill N, Chidi J, Hardy L, Tejas AK, Danis SS, Helen Mims M, Zunilda WH. Definition of venous reflux in lower-extremity veins.J Vasc Surg. 2003; [id number].
== END 2023-04-26 10:17 | disposition home or self-care (01) ==
LOC: HO.US 10:16
PROVIDERS: PCP Family Medicine; Visit Provider Surgery Vascular Surgery
DX: I83.12 Varicose veins of left lower extremity with inflammation (principal)
CPT/HCPCS: 93970

== ENCOUNTER 2023-06-07 10:49 | Outpatient (AMB) | payer MEDICAID, SELFPAY ==
--- NOTE | 2023-06-07 10:59 | MHC.OFFVIS ---
Intake Vital Signs 06/07/23 11:00 Height 5 ft 10 in Weight 328 lb BMI 47.1 Intake Visit Reasons: venous duplex fu Intake Note: follow up US bilateral LE 04/26/2023 for VV bilateral LE, Left LE worse than Right LE. Hx of Ablation by [facility] Dr. Alverto No. Pt states she has a heaviness. Pt states that since her US was done she has tingling and numbness on her right foot. STates it somes and goes regardless of ambulation status. Accompanied by: Self / Same As Patient Allergies No Known Allergies [No Known Allergies*] Allergy (Verified 06/07/23 11:06) HPI venous duplex fu HPI Details Very pleasant 37-year-old female presents for follow-up regarding venous insufficiency. She had prior venous ablation is performed at an outside institution. She continues to have swelling and discomfort left more so than right. She has had a trial of compression since her original ablation is which have provided minimal relief. She now presents for follow-up. [facility] Medical History Gout Anemia Obesity Hx gestational diabetes Snoring Anxiety Depression Arthritis Cervical cancer Chronic back pain Encounter for Essure implantation Surgical History History of tonsillectomy and adenoidectomy History of breast augmentation Previous section Family History Mother No problems noted. Father No problems noted. Sister No problems noted. Sister No problems noted. Brother No problems noted. Brother No problems noted. Son No problems noted. Daughter No problems noted. 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 Review of Systems Const Reports as per HPI ENT Reports no additional complaints Card Denies chest pain, Denies chest pain at rest and Denies chest pain with activity Resp Denies chest congestion and Denies cough GI Reports no additional complaints Musc Details: pain over varicosities, aching of lower extremities, swelling, cramping, heaviness and tiredness, itching Denies abnormal gait Skin/Breast Reports pruritus and Denies wounds Neuro Reports no additional complaints and Denies abnormal gait Psych Denies no additional complaints Physical Exam Vital Signs: BMI result Body Mass Index 47.1 Const General: cooperative, healthy appearing and comfortable Orientation/consciousness: oriented to person, oriented to place and oriented to time Neck Carotids: no bruits Chest Chest palpation & inspection: normal inspection of the chest and normal palpation of entire chest wall Resp Effort & Inspection: normal respiratory effort and able to speak in complete sentences Cardio Rate: regular rate Heart sounds: S1 normal heart sound present and S2 normal heart sound present Peripheral pulses: Peripheral pulses 2+ throughout GI Inspection: Yes normal to inspection Skin Other: +2 edema, large rope-like varicosities greater than 4 mm CEAP Classification C4 - skin color changes Ep - Etiology Primary As - superficial veins P - reflux General skin exam: dry skin Neuro General: oriented to person, oriented to place and oriented to time Extrem Right lower extremity: full ROM, normal capillary refill and edema Left lower extremity: full ROM, normal capillary refill and edema Psych Mental Status: mental status grossly normal Results Reviewed Results Reviewed: Brief summary of venous insufficiency testing is as follows: right great saphenous vein: Ablated right small saphenous vein: negative right accessory vein: none present left great saphenous vein: Ablated left small saphenous vein: Positive left accessory vein: none present Please note there is no evidence of any venous aneurysms or significant tortuosity Assessment & Plan Assessment & Plan (1) Varicose veins of left lower extremity with inflammation: Code(s): I83.12 - Varicose veins of left lower extremity with inflammation Plan: This patient has varicose veins with inflammation. They continue to be a source of discomfort for the patient. The patient has tried conservative treatment with compression, leg elevation and exercise program for over 3 months time. They have been compliant with all treatment. This has provided minimal relief for the patient. I do not anticipate this course of treatment will alter the underlying etiology. The patient has been scheduled for lower extremity venous treatment inclusive of --- left small saphenous vein radiofrequency ablation. Risks, benefits, and complications of this procedure has been discussed in detail with the patient including but not limited to bleeding, infection, and the development of a DVT. The patient has demonstrated a clear understanding and has consented. We will schedule the patient as soon as possible. Thank you for allowing us to participate in this patient's care. If there are any questions or concerns please do not hesitate to contact us. Coding Level of Care Code Est Pt Level 4 (31508) Diagnoses Varicose veins of left lower extremity with inflammation I83.12
[2023-06-07 11:00] VITALS: BMI 47.1
== END 2023-06-07 12:10 | disposition home or self-care (01) ==
PROVIDERS: PCP Family Medicine; Visit Provider Surgery Vascular Surgery
DX: I83.12 Varicose veins of left lower extremity with inflammation (principal)
CPT/HCPCS: 99214

== ENCOUNTER → 2023-06-07 10:49 | Outpatient (BNVA) | payer MEDICAID, SELFPAY | PROVIDERS: PCP Family Medicine; Visit Provider Surgery Vascular Surgery | DX: I83.12 Varicose veins of left lower extremity with inflammation (principal) | CPT/HCPCS: 99212 ==

== ENCOUNTER 2023-07-27 12:26 | Outpatient (AMB) | payer MEDICAID, SELFPAY ==
--- NOTE | 2023-07-27 13:19 | MHC.OFFVIS ---
Intake Intake Visit Reasons: Left SSV RFA Allergies No Known Allergies [No Known Allergies*] Allergy (Verified 06/07/23 11:06) [facility] Medical History Gout Anemia Obesity Hx gestational diabetes Snoring Anxiety Depression Arthritis Cervical cancer Chronic back pain Encounter for Essure implantation Surgical History History of tonsillectomy and adenoidectomy History of breast augmentation Previous section Family History Mother No problems noted. Father No problems noted. Sister No problems noted. Sister No problems noted. Brother No problems noted. Brother No problems noted. Son No problems noted. Daughter No problems noted. 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 Estimated Blood Loss: Minimal The patient was transferred to the procedure suite and the insufficient small saphenous vein was mapped by ultrasound and diagrammed on the overlying skin. The depth and diameter of the vein(s) to be treated was document 5 ed. The varicose tributary veins and suitable access sites were identified and mapped as well. The patient was then positioned prone on the procedure table. The affected limb was prepped and draped in the usual sterile fashion. The RF catheter was placed on the sterile field, flushed and wiped down, prepared, and connected by a sterile cable. The patient was placed in a prone position and local anesthesia was instilled in the skin overlying the access site. A skin incision was made overlying the identified and mapped small saphenous vein entry site. The vein was accessed using ultrasound guidance and the Seldinger technique, a guide wire was introduced through the needle, which was then exchanged over the guide wire for a 6F sheath, which was secured in place. The guide wire was removed and the sheath was flushed. The RF catheter was placed into the vein through the sheath and preferentially, imaging was used to place the catheter tip just inferior to the saphenopopliteal junction. Additionally, it was confirmed by ultrasound guidance that the catheter tip was also placed a minimum of 1.5cm distal to the saphenopopliteal junction. After the RF catheter position was verified by ultrasound, tumescent anesthesia was infiltrated, under ultrasound guidance, precisely into the perivenous compartment along the entire length of vein from the entry site to the saphenofemoral junction until a halo of fluid was noted around the vein. The patient was appropriately position. After RF catheter position was again confirmed with ultrasound imaging, and under direct external compression along the length of the heating element, RF energy was applied. The vein was segmentally ablated by heating a 2.5 cm segment and then indexing the catheter forward by 2.0 cm until the treatment length is completed. Device temperature was maintained at 120 plus or minus 5 degrees C with an initial power level of 4W/cm dropping to below 2W/cm for each treatment. Total vein length treated 10 cm Total cycles of RF []. Repeat ultrasound of the saphenous vein was performed, confirming successful treatment. The catheter and sheath were withdrawn and hemostasis established with direct pressure. After assuring hemostasis, the skin incision over the saphenous vein was closed with a bandage and a compression wrap was applied from the level of the foot to the most proximal level of the thigh. Discharge instructions were given to the patient inclusive of follow-up ultrasound [place] [address] - Endovenous RF, 1st Vein All charges added?: Procedure code (CPT) selection complete Assessment & Plan Assessment & Plan (1) Varicose veins of left lower extremity with inflammation: Code(s): I83.12 - Varicose veins of left lower extremity with inflammation Plan: See op note Coding Level of Care Code Procedure Only Diagnoses Varicose veins of left lower extremity with inflammation I83.12 CPT Codes Details - Vascular 1: 51691 - Endovenous RF, 1st Vein ([id number])
== END 2023-07-27 13:51 | disposition home or self-care (01) ==
PROVIDERS: PCP Family Medicine; Visit Provider Surgery Vascular Surgery
DX: I83.12 Varicose veins of left lower extremity with inflammation (principal)
CPT/HCPCS: 36475

== ENCOUNTER → 2023-07-27 12:26 | Outpatient (BNVA) | payer MEDICAID, SELFPAY | PROVIDERS: PCP Family Medicine; Visit Provider Surgery Vascular Surgery | DX: I83.12 Varicose veins of left lower extremity with inflammation (principal) | CPT/HCPCS: 36475 ==

== ENCOUNTER 2023-07-31 14:59 | Outpatient (REF) | payer MEDICAID, SELFPAY ==
--- NOTE | ~2023-07-31 | US_ITS ---
EXAMINATION: TRIPLEX SCANNING OF LEFT LOWER EXTREMITY; SUPERFICIAL ULTRASOUND WITH DOPPLER OF LEFT LOWER EXTREMITY CLINICAL INFORMATION: Status post RF ablation of the small saphenous vein originally performed on 07/27/2023. COMPARISON: Preprocedure studies. TECHNIQUE: Color flow triplex imaging and compression Doppler were performed as well as superficial ultrasound with Doppler. FINDINGS: TRIPLEX SCANNING OF LEFT LOWER EXTREMITY: Respiratory variation, normal compression and augmented flow are noted throughout the lower extremity. The visualized common femoral vein, femoral vein, profunda femoral vein, popliteal vein and the calf veins show no evidence of deep venous thrombosis. There is no evidence of Mauro's cyst. SUPERFICIAL ULTRASOUND WITH DOPPLER OF LEFT LOWER EXTREMITY: The small great saphenous vein is occluded from the access site 5.1 cm from the saphenofemoral popliteal junction. There is no extension of thrombus into the deep system. US/US venous duplex LE LT IMPRESSION: 1. Normal triplex scan of the left without evidence of deep venous thrombosis. 2. Excellent appearance status post ablation of the left small saphenous vein.
== END 2023-07-31 15:00 | disposition home or self-care (01) ==
LOC: HO.US 14:59
PROVIDERS: PCP Family Medicine; Visit Provider Surgery Vascular Surgery
DX: M79.605 Pain in left leg (principal); Z98.890 Other specified postprocedural states
CPT/HCPCS: 93971

== ENCOUNTER 2023-11-12 13:25 | Outpatient (REF) | payer MEDICAID, SELFPAY ==
[2023-11-12 16:24] LABS: Hematocrit 47.5 % (37.0-47.0); Hemoglobin 15.6 g/dl (12.0-16.0); Mean Corpuscular HGB Conc 32.8 g/dl (31.0-35.0); Mean Corpuscular Hemoglobin 28.8 pg (27.0-33.0); Mean Corpuscular Volume 87.8 fL (80.0-98.0); Platelet Count 266 X10*3/uL (160-400); Red Blood Count 5.41 X10*6/uL (4.20-5.50); Red Cell Distribution Width 13.2 % (11.0-16.0); White Blood Count 7.4 X10*3/uL (4.8-10.8)
[2023-11-12 16:27] LABS: Estimated Average Glucose 103 mg/dL; Hemoglobin A1c % 5.2 % (<6.0)
[2023-11-12 17:03] LABS: Alanine Aminotransferase 34 U/L (0-31); Albumin Level 4.2 g/dL (3.5-5.0); Alkaline Phosphatase 62 U/L (39-117); Aspartate Amino Transferase 26 U/L (5-31); Bilirubin Direct 0.2 mg/dL (0.0-0.5); Bilirubin Total 0.5 mg/dL (0.0-1.0); Cholesterol 221 mg/dL (<200); HDL Cholesterol 50 mg/dL (>40); LDL Cholesterol Calculated 129 mg/dL (<100); Total Protein 8.3 g/dL (6.5-8.0); Triglycerides 212 mg/dL (<150)
[2023-11-12 17:06] LABS: Free T4 (Free Thyroxine) 0.91 ng/dL (0.71-1.85); Thyroid Stimulating Hormone 2.06 uIU/mL (0.32-4.0); Vitamin D 25-OH Total 71.5 ng/mL (>30)
[2023-11-13 04:48] LABS: HBsAGNum1 0.28 S/CO (0.00-0.99); HIV AB/AG Nonreactive (Nonreactive); HIV Num 1 0.07 S/CO (0.00-0.99); Hepatitis B Surface Antigen Negative (Negative); ~HepC Num1 0.19 S/CO (0.00-0.79); ~Hepatitis C Antibody Nonreactive (Nonreactive)
[2023-11-13 11:38] LABS: RPR Rapid Plasma Reagin NON-REACTIVE (NON-REACTIVE)
== END 2023-11-12 13:26 | disposition home or self-care (01) ==
LOC: HO.HHCL 13:25
PROVIDERS: Visit Provider Family Medicine
DX: R53.83 Other fatigue (principal); R03.0 Elevated blood-pressure reading, without diagnosis of hypertension
CPT/HCPCS: 36415; 80061; 80076; 82306; 83036; 84439; 84443; 85027; 86592; 86803; 87340; 87389

== ENCOUNTER 2024-02-28 11:49 | Outpatient (REF) | payer MEDICAID, SELFPAY ==
[2024-02-28 13:30] LABS: Hematocrit 45.3 % (37.0-47.0); Hemoglobin 15.6 g/dl (12.0-16.0); Mean Corpuscular HGB Conc 34.4 g/dl (31.0-35.0); Mean Corpuscular Hemoglobin 29.4 pg (27.0-33.0); Mean Corpuscular Volume 85.3 fL (80.0-98.0); Mean Platelet Volume 8.3 fL (9.4-12.3); Platelet Count 369 X10*3/uL (160-400); Red Blood Count 5.31 X10*6/uL (4.20-5.50); Red Cell Distribution Width 13.4 % (11.0-16.0); White Blood Count 6.9 X10*3/uL (4.8-10.8)
[2024-02-28 14:24] LABS: Estimated Average Glucose 100 mg/dL; Hemoglobin A1c % 5.1 % (<6.0)
[2024-02-28 14:48] LABS: Alanine Aminotransferase 32 U/L (0-31); Albumin Level 4.3 g/dL (3.5-5.0); Alkaline Phosphatase 50 U/L (39-117); Anion Gap 13 (12-20); Aspartate Amino Transferase 26 U/L (5-31); Bilirubin Direct 0.1 mg/dL (0.0-0.5); Bilirubin Total 0.7 mg/dL (0.0-1.0); Blood Urea Nitrogen 11 mg/dL (9-16); Calcium 9.4 mg/dL (8.4-10.2); Carbon Dioxide 24 mmol/L (22-29); Chloride 107 mmol/L (96-108); Cholesterol 214 mg/dL (<200); Estimated Glomerular Filt Rate > 60; Glucose Random 75 mg/dL (60-115); HDL Cholesterol 41 mg/dL (>40); LDL Cholesterol Calculated 148 mg/dL (<100); Potassium 3.4 mmol/L (3.3-5.1); Sodium 141 mmol/L (135-145); Total Protein 8.1 g/dL (6.5-8.0); Triglycerides 127 mg/dL (<150)
[2024-02-28 14:58] LABS: Free T4 (Free Thyroxine) 0.89 ng/dL (0.71-1.85); Vitamin D 25-OH Total 61.4 ng/mL (>30)
== END 2024-02-28 11:50 | disposition home or self-care (01) ==
LOC: HO.HHCL 11:49
PROVIDERS: Visit Provider Family Medicine
DX: R03.0 Elevated blood-pressure reading, without diagnosis of hypertension (principal)
CPT/HCPCS: 36415; 80048; 80061; 80076; 82306; 83036; 84439; 84443; 85027

== ENCOUNTER 2024-03-13 12:51 | Outpatient (REF) | payer MEDICAID, SELFPAY | END 2024-03-13 12:52 | disposition home or self-care (01) | LOC: HO.SH 12:51 | PROVIDERS: Visit Provider Family Medicine | DX: Z01.118 Encounter for examination of ears and hearing with other abnormal findings (principal); H90.3 Sensorineural hearing loss, bilateral | CPT/HCPCS: 92557; 92567 ==

== ENCOUNTER 2024-03-24 17:58 | Emergency (ER) | payer MEDICAID, SELFPAY ==
--- NOTE | ~2024-03-24 | US_ITS ---
EXAMINATION: US PELVIS CLINICAL INFORMATION: Abdominal pain and vaginal bleeding COMPARISON: 04/23/2019 TECHNIQUE: Ultrasound of the pelvis is performed using both transabdominal and transvaginal transducers along with Doppler. Transvaginal imaging is performed due to inadequate visualization transabdominally. FINDINGS: Uterus: The uterus is anteverted and measures 11.5 x 6.1 x 6.9 cm. Multiple prominent nabothian cysts are again seen in the cervical region The double wall endometrial thickness is 14 mm. The uterus is smooth in contour and has normal myometrial echogenicity. No visible fibroid. Adnexa: Both ovaries are not able to be visualized visualized. There is no pelvic ascites or fluid collection. US/US pelvic and transvaginal IMPRESSION: Nabothian cysts again seen in the cervical region. Both ovaries are not able to be visualized.
[2024-03-24 18:20] VITALS: BP 119/84; PULSE 83; RESP 18; TEMP 36.6; O2SAT 98; BMI 36.7
--- NOTE | 2024-03-24 18:27 | ED.FEMALEGU ---
HPI - Female Genitourinary General Chief complaint: Urogenital-Female Stated complaint: Heavy Menses x 3 weeks History of Present Illness HPI Narrative: left without completion of treatment by ED provider. Related Data Home Medications ?Medication ?Instructions ?Recorded ?Confirmed gabapentin 100 mg capsule 100 mg PO BID 07/05/20 08/23/22 multivitamin (Daily Multi-Vitamin 1 tab PO DAILY 07/06/20 08/23/22 tablet) cholecalciferol (vitamin D3) 50 50 mcg PO DAILY 08/10/20 08/23/22 mcg (2,000 unit) capsule ferrous sulfate 325 mg (65 mg 1 tab PO DAILY 08/23/22 08/23/22 iron) tablet Allergies Allergy/AdvReac Type Severity Reaction Status Date / Time No Known Allergies Allergy Verified 03/24/24 18:24 [No Known Allergies*] [facility] Past Medical History Medical History Gout Anemia Obesity Hx gestational diabetes Snoring Anxiety Depression Arthritis Cervical cancer Chronic back pain Encounter for Essure implantation Surgical History History of tonsillectomy and adenoidectomy History of breast augmentation Previous section Family History Family History Mother No problems noted. Father No problems noted. Sister No problems noted. Sister No problems noted. Brother No problems noted. Brother No problems noted. Son No problems noted. Daughter No problems noted. 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 [age] year female presents to ED for profuse vaginal bleeding. Patient's test is negative. Patient has history of cervical cancer and ovarian cyst. Patient is sent for ultrasound. Labs ultrasound ordered. Mild lower abdominal cramping Medical Decision Making Lab Data Labs: Lab Results 03/24/24 Range/Units 19:38 Urine Color RED Urine Appearance Turbid Urine pH 6.5 (5.0-9.0) Ur Specific [place] >= 1.030 H (1.005-1.025) Urine Protein 300 (3+) H (Neg-Trace) mg/dL Urine Glucose (UA) Negative (Negative) mg/dL Urine Ketones Negative (Negative) mg/dL Urine Blood Large (3+) H (Negative) Urine Nitrite Negative (Negative) Ur Leukocyte Esterase Negative (Negative) Urine RBC >20 H (0-2) /HPF Urine WBC 0-5 (0-5) /HPF Ur Squamous Epith Cells 3-5 (0-2) /HPF Urine Bacteria Trace (None Seen) Hyaline Casts 0-2 (0-2) /LPF Urine Test NEGATIVE (NEGATIVE) Discharge Plan Discharge Clinical Impression: Vaginal bleeding Patient Disposition: Left W/O Completing Treatment Prescriptions: No Action ferrous sulfate 325 mg (65 mg iron) tablet 1 tab PO DAILY cholecalciferol (vitamin D3) 50 mcg (2,000 unit) capsule 50 mcg PO DAILY gabapentin 100 mg capsule 100 mg PO BID multivitamin [Daily Multi-Vitamin] Tablet 1 tab PO DAILY Discharge Date/Time: 03/25/24 00:07
--- NOTE | 2024-03-24 19:30 | MHC.EDTECH ---
PT refusing lab draw at this time. States has no more blood to give d/t vaginal bleeding. Reports no JONES, SOB, CP, or dizziness. Skin tone normal and not pale. Able to ambulate w/o difficulty.
[2024-03-24 20:00] LABS: UPreg QC Valid YES; Urine Pregnancy NEGATIVE (NEGATIVE)
[2024-03-24 20:06] LABS: Appearance Urine Turbid; Color Urine RED; Glucose Urine UA Negative (Negative); Leukocyte Esterase Urine Negative (Negative); Nitrite Urine Negative (Negative); PH 6.5 (5.0-9.0); Specific Gravity - Urine >= 1.030 (1.005-1.025); UMIC TRIGGER UACC YES; Urine Blood Large (3+) (Negative); Urine Ketones Negative (Negative); Urine Protein 300 (3+) mg/dL (Neg-Trace)
[2024-03-24 20:15] LABS: Bacteria Urine Trace (None Seen); Hyaline Casts Urine 0-2 /LPF (0-2); RBC Urine >20 /HPF (0-2); UACC Culture Trigger YES; WBC Urine 0-5 /HPF (0-5)
== END 2024-03-25 00:07 | disposition left against medical advice (07) ==
PROVIDERS: Physician Assistant; Emergency Provider Emergency Medicine; PCP Family Medicine
DX: N92.0 Excessive and frequent menstruation with regular cycle (principal); R10.2 Pelvic and perineal pain; Z87.891 Personal history of nicotine dependence; Z79.899 Other long term (current) drug therapy
CPT/HCPCS: 76830; 76856; 81001; 81003; 81025; 87086; 99282; 99284

== ENCOUNTER 2024-08-28 13:51 | Outpatient (REF) | payer MEDICAID, SELFPAY ==
[2024-08-29 02:26] LABS: CT PCR NOT DETECTED (Not Detect.); NG PCR NOT DETECTED (Not Detect.)
[2024-08-29 08:42] LABS: Bacterial Vaginosis PCR NEGATIVE (Negative); Candida Group PCR NOT DETECTED (Not Detect); Candida glab krusei PCR NOT DETECTED (Not Detect); Trichomonas vaginalis PCR NOT DETECTED (Not Detect)
[2024-08-29 09:22] LABS: HPV 16,18/45 See PAP report
== END 2024-08-28 13:52 | disposition home or self-care (01) ==
LOC: HO.LAB 13:51
PROVIDERS: PCP Family Medicine; Visit Provider Advanced Practice Midwife
DX: Z01.419 Encounter for gynecological examination (general) (routine) without abnormal findings (principal); N92.0 Excessive and frequent menstruation with regular cycle; N89.8 Other specified noninflammatory disorders of vagina; E66.9 Obesity, unspecified; Z68.39 Body mass index [BMI] 39.0-39.9, adult; Z98.891 History of uterine scar from previous surgery
CPT/HCPCS: 81515; 87491; 87591; 87626; 99385; 99459

== ENCOUNTER 2024-08-28 13:51 | Outpatient (AMB) | payer MEDICAID, SELFPAY ==
[2024-08-28 13:57] VITALS: BP 118/70; BMI 39.5
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
== END 2024-08-28 15:31 | disposition home or self-care (01) ==
PROVIDERS: PCP Family Medicine; Visit Provider Advanced Practice Midwife
DX: Z01.419 Encounter for gynecological examination (general) (routine) without abnormal findings (principal); N92.0 Excessive and frequent menstruation with regular cycle; E66.9 Obesity, unspecified; Z98.891 History of uterine scar from previous surgery; Z30.09 Encounter for other general counseling and advice on contraception; Z98.890 Other specified postprocedural states
CPT/HCPCS: 99385

== ENCOUNTER 2024-08-28 15:22 | Outpatient (REF) | payer MEDICAID, SELFPAY | END 2024-08-28 15:23 | disposition home or self-care (01) | LOC: HO.LNP 15:22 | PROVIDERS: Visit Provider Advanced Practice Midwife | DX: Z01.419 Encounter for gynecological examination (general) (routine) without abnormal findings (principal); Z87.42 Personal history of other diseases of the female genital tract | CPT/HCPCS: 88175 ==

== ENCOUNTER 2024-08-29 10:37 | Outpatient (REF) | payer MEDICAID, SELFPAY ==
[2024-08-29 11:50] LABS: Hematocrit 40.7 % (37.0-47.0); Hemoglobin 13.6 g/dl (12.0-16.0); Mean Corpuscular HGB Conc 33.4 g/dl (31.0-35.0); Mean Corpuscular Hemoglobin 28.5 pg (27.0-33.0); Mean Corpuscular Volume 85.3 fL (80.0-98.0); Platelet Count 261 X10*3/uL (160-400); Red Blood Count 4.77 X10*6/uL (4.20-5.50); Red Cell Distribution Width 13.7 % (11.0-16.0); White Blood Count 9.9 X10*3/uL (4.8-10.8)
[2024-08-29 12:00] LABS: Estimated Average Glucose 105 mg/dL; Hemoglobin A1C 119.9768 umol/L; Hemoglobin A1c % 5.3 % (<6.0); Total Hemoglobin (HGBA1C) 3541.9279 umol/L
[2024-08-29 12:20] LABS: HBS Num1 44.32 mIU/mL (0-7.99); HIV AB/AG Nonreactive (Nonreactive); HIV Num 1 0.06 S/CO (0.00-0.99); ~HepC Num1 0.13 S/CO (0.00-0.79); ~Hepatitis B Surface Antibody REACTIVE (Nonreactive); ~Hepatitis C Antibody Nonreactive (Nonreactive)
[2024-08-29 12:26] LABS: Alanine Aminotransferase 18 U/L (0-31); Albumin Level 3.7 g/dL (3.5-5.0); Alkaline Phosphatase 55 U/L (39-117); Anion Gap 8 (12-20); Aspartate Amino Transferase 19 U/L (5-31); Bilirubin Direct 0.1 mg/dL (0.0-0.5); Bilirubin Total 0.5 mg/dL (0.0-1.0); Blood Urea Nitrogen 11 mg/dL (9-16); Calcium 8.8 mg/dL (8.4-10.2); Carbon Dioxide 30 mmol/L (22-29); Chloride 109 mmol/L (96-108); Cholesterol 184 mg/dL (<200); Estimated Glomerular Filt Rate > 60; Free T4 (Free Thyroxine) 1.05 ng/dL (0.71-1.85); Glucose Random 93 mg/dL (60-115); HDL Cholesterol 56 mg/dL (>40); LDL Cholesterol Calculated 101 mg/dL (<100); Potassium 3.7 mmol/L (3.3-5.1); Sodium 143 mmol/L (135-145); Thyroid Stimulating Hormone 3.09 uIU/mL (0.32-4.0); Total Protein 7.2 g/dL (6.5-8.0); Triglycerides 136 mg/dL (<150); Vitamin D 25-OH Total 70.6 ng/mL (>30)
[2024-08-31 07:33] LABS: RPR Rapid Plasma Reagin NON-REACTIVE (NON-REACTIVE)
== END 2024-08-29 10:38 | disposition home or self-care (01) ==
LOC: HO.HHCL 10:37
PROVIDERS: Visit Provider Family Medicine
DX: Z00.00 Encounter for general adult medical examination without abnormal findings (principal); F33.9 Major depressive disorder, recurrent, unspecified; I87.2 Venous insufficiency (chronic) (peripheral); R03.0 Elevated blood-pressure reading, without diagnosis of hypertension; G47.30 Sleep apnea, unspecified; N93.9 Abnormal uterine and vaginal bleeding, unspecified; Z68.41 Body mass index [BMI] 40.0-44.9, adult; L73.2 Hidradenitis suppurativa; Z68.42 Body mass index [BMI] 45.0-49.9, adult
CPT/HCPCS: 36415; 80048; 80061; 80076; 82306; 83036; 84439; 84443; 85027; 86592; 86706; 86803; 87389

== ENCOUNTER 2024-10-28 15:10 | Outpatient (REF) | payer MEDICAID, SELFPAY ==
--- OUTSIDE RECORDS SUMMARY | 2024-10-29 17:55 | XMS_ITS | Encounter Summary ---
Author Organization [employer] Address [address] 7t [place] [address] Care Team Providers Care Winemaker Name Role Phone Ethel Krishnan DO Primary Care Provider [phone] Reason for Visit * Reason Onset Date Comments Appointment Request 07/08/2024 Encounter Details Date Type Department Care Team ([facility] st Contact Info) Description 07/08/2024 Telephone [facility] [address] [place] [address] Ethel Krishnan DO [address] [place] [address] Appointment Request Social History Tobacco Use Types [...] Pt denied any concerns. Contact pt at [phone] documented in this encounter Plan of Treatment Not on file documented as of this encounter Visit Diagnoses Not on filedocumented in this encounter Additional Health Concerns Assessment Noted Time PHQ-9 Depression Total Score: 7 03/26/20 24 10:08 AM EDT documented as of this encounter Care Teams Winemaker Relationship Specialty Start Date End Date Ethel Krishnan DO [address] [place] [phone] PCP - General Family Medicine 08/20/18 documented as of this encounter
--- OUTSIDE RECORDS SUMMARY | 2024-10-29 17:55 | XMS_ITS | Clinical Summary ---
Author Organization [employer] Address [address] [place] [address] Care Team Providers Care Human Relations Teacher Name Role Phone HerbertEthel bueno Primary Care Provider [phone] Allergies No known active allergies Medications * [...] 2017, pap nml/HPV negative Apr 2018 with [facility], will have pap appt scheduled -fasting labs [...] labs -referred for sleep study -advised contact [facility] if sx change or worsen Sleep-disordered breathing [...] Department Care Team Description 10/04/2024 Orders Only [facility] [address] [place] [address] Provider, MD Abdias 09/11/2024 Telephone [facility] [address] [place] [address] Ethel Krishnan DO Results 08/29/2024 10:15 AM EST Office Visit [facility] [address] [place] [phone] Ethel Krishnan DO Major depression, recurrent, chronic (CMS/HCC) (Primary Dx); Chronic venous insufficiency; Elevated BP without diagnosis of hypertension; Sleep-disordered breathing; Abnormal uterine bleeding; Anemia, unspecified type; Chronic pain of left knee; Multiple acquired skin tags; Comedonal acne; Healthcare maintenance; BMI 40.0-44.9, adult (CMS/HCC) 08/29/2024 Travel 08/23/2024 Refill [facility] [address] [place] [address] Ethel Krishnan DO from Last 3 Months [...] Media Lot # [id number] Lot# Expiration Date [id number] Blood 08/29/2024 11:2 7 AM EST Ethel Krishnan DO POINT OF CARE TEST ENTER/MARIVEL T ORDERABLES Final Result * Vitamin D, 25-Hydroxy, Total, Immunoassay (08/29/2024 10:43 AM EST) Vitamin D 25-OH Total 70.6 >30 ng/mL [facility] Comment:Health Based Referen ce Values*< 20 ng/mL Imbencpbq26-79 ng/mL Insufficient> 30 ng/mL Sufficient*Reina MCARTHUR. N [...] ORDERABLES Final R esult Performing Organization Address [facility] Co de Phone Number [facility] [address] [place] [phone] * Hepatitis C Antibody with Reflex to HCV, RNA, Quantitative, Real-Time PCR (08/29/2024 10:43 AM EST) Hepatitis C Antibody Nonreactive Nonreactive [facility] Comment:Antibodies to HCV no t detected; does not exclude early acuteHCV infection. Blood Venous blood specimen / Unknown 08/29/2024 10:43 AM EST 08/29/2024 11:33 AM EST us Ethel Krishnan DO LAB BLOOD ORDERABLES Final R esult Performing Organization Address [facility] de Phone Number [facility] [address] [place] [phone] * RPR (Monitor) with Reflex to??Titer (08/29/2024 10:43 AM EST) RPR (Monitor) w/Refl Titer NON-REACTI VE NON-REACT YUMIKO [facility] Comment:THIS TEST WAS PERFOR MED AT:[facility] [place] [phone] SHULTZ MD Rapid Plasma Reagin Ab Titer TNP [facility] Blood Venous blood specimen / Unknown 08/29/2024 10:43 AM EST 08/29/2024 11:33 AM EST Ethel Krishnan DO LAB BLOOD ORDERABLES Final R esult Performing Organization Address City/[facility]/ZIP Co de Phone Number [facility] [address] [place] [address] [phone] * HIV-1/2 Antigen and Antibodies, Fourth Generation, with Reflexes (08/29/2024 10:43 AM EST) HIV AB/AG Nonreactive Nonreactive [facility] Comment:HIV-1 p24 Ag and/or HIV-1/HIV-2 Ab not detected.A test result that is nonreactive does not exclude thepossibility of exposure to or infection with HIV-1 and/orHIV-2. Nonreactive results in this assay for individualswith prior exposure to HIV-1 and/or HIV-2 may be due toantigen and antibody levels that are below the limit ofdetection of this assay.The klinify HIV Ag/Ab Combo assay result andsupplemental assay results should be interpreted inconjunction with the patient's clinical presentation,history and other laboratory results. If the results areinconsistent with clinical evidence, additional testing issuggested to confirm the result. Blood Venous blood specimen / Unknown 08/29/2024 10:43 AM EST 08/29/2024 11:33 AM EST Ethel Krishnan DO LAB BLOOD ORDERABLES Final R esult Performing Organization Address [facility] Co de Phone Number [facility] [address] [place] [address] [phone] * Hepatitis B Surface Antibody, Qualitative (08/29/2024 10:43 AM EST) ~Hepatitis B Surface Antibody REACTIVE Nonreactive [facility] Comment:REACTIVE: > 11.99 mI U/mL Blood Venous blood specimen / Unknown 08/29/2024 10:43 AM EST 08/29/2024 11:33 AM EST Ethel Krishnan DO LAB BLOOD ORDERABLES Final R esult Performing Organization Address [facility] Co de Phone Number [facility] [address] [place] [phone] * (ABNORMAL) CBC (08/29/2024 10:43 AM EST) White Blood Count 9.9 4.8 - 10.8 X10*3/uL [facility] Red Blood Count 4.77 4.20 - 5.50 X10*6/uL [facility] Hemoglobin 13.6 12.0 - 16.0 g/dl [facility] Hematocrit 40.7 37.0 - 47.0 % [facility] Mean Corpuscular Volume 85.3 80.0 - 98.0 fL [facility] Mean Corpuscular Hemoglobin 28.5 27.0 - 33.0 pg [facility] Mean Corpuscular HGB Conc 33.4 31.0 - 35.0 g/dl [facility] Red Cell Distribution Width 13.7 11.0 - 16.0 % [facility] Platelet Count 261 160 - 400 X10*3/uL [facility] Mean Platelet Volume 8.0(L) 9.4 - 12.3 fL [facility] NRBC Pct Auto 0.0 0.0 - 0.2 /100WBC [facility] NRBC Abs Auto 0.000 0.0 - 0.012 X10*3/uL [facility] Blood Venous blood specimen / Unknown 08/29/2024 10:43 AM EST 08/29/2024 11:33 AM EST us Ethel Krishnan DO LAB BLOOD ORDERABLES Final R esult [facility] [address] [place] [address] [phone] * TSH (08/29/2024 10:43 AM EST) Thyroid Stimulating Hormone 3.09 0.32 - 4.0 uIU/mL [facility] Comment:Note: A sustained TS H level above 2.5 uIU/mL may warrant further investigation. TSH 3rd Generation ([facility]) Blood Venous blood specimen / Unknown 08/29/2024 10:43 AM EST 08/29/2024 11:33 AM EST Ethel Krishnan DO LAB BLOOD ORDERABLES Final R esult Performing Organization Address City/[facility]/ZIP Co de Phone Number [facility] [address] [place] [phone] * T4, Free (08/29/2024 10:43 AM EST) Free T4 (Free Thyroxine) 1.05 0.71 - 1.85 ng/dL [facility] Blood Venous blood specimen / Unknown 08/29/2024 10:43 AM EST 08/29/2024 11:33 AM EST Ethel Krishnan DO LAB BLOOD ORDERABLES Final R esult Performing Organization Address City/[facility] Co de Phone Number [facility] [address] [place] [phone] * Hemoglobin A1c (08/29/2024 10:43 AM EST) Hemoglobin A1c 5.3 <6.0 % [facility] Comment:Hemoglobin A1C Refer ence Range Adults: 4.8 - 6.0 % Non diabetic: < 6.0 % Goal: < 7.0 %Additional Action Suggested: > 8.0 %Note: Hemoglobin A1c results are invalid for patients with abnormal amounts of HbF. Blood transfusions may impact the HbA1c concentration in the patient sample. Estimated Average Glucose 105 mg/dL [facility] Comment:eAG = Estimated ave rage glucose which is %A1C expressed asaverage glucose, using the formula of the W8S-EnjagdjRethdxm Glucose study (ADAG), Diabetes Care, Vol.31,#8,Mar. 2007 Blood Venous blood specimen / Unknown 08/29/2024 10:43 AM EST 08/29/2024 11:33 AM EST Ethel Aguileracsak DO LAB BLOOD ORDERABLES Final R esult [facility] [address] [place] [phone] * Hepatic Function Panel (08/29/2024 10:43 AM EST) Bilirubin, Total 0.5 0.0 - 1.0 mg/dL [facility] Bilirubin, Direct 0.1 0.0 - 0.5 mg/dL [facility] Aspartate Amino Transferase 19 5 - 31 U/L [facility] Alanine Aminotransferase 18 0 - 31 U/L [facility] Total Protein 7.2 6.5 - 8.0 g/dL [facility] Albumin Level 3.7 3.5 - 5.0 g/dL [facility] Alkaline Phosphatase 55 39 - 117 U/L [facility] Blood Venous blood specimen / Unknown 08/29/2024 10:43 AM EST 08/29/2024 11:33 AM EST Ethel Aguileralanette DO LAB BLOOD ORDERABLES Final R esult Performing Organization Address City/[facility]/ZIP Co de Phone Number [facility] [address] [place] [phone] * (ABNORMAL) Lipid Panel, Standard (08/29/2024 10:43 AM EST) Triglycerides 136 <150 mg/dL [facility] Comment:Desirable Triglyceri de: less than 150 mg/dLBorderline High Triglyceride 150-199 mg/dLHigh Triglyceride: 200-499 mg/dLVery High Triglyceride: greater than or equal to 5OO mg/dL Cholesterol 184 <200 mg/dL [facility] Comment:Desirable Cholestero l: less than 200 mg/dLBorderline High Cholesterol: 200-239 mg/dLHigh Cholesterol: greater than 239 mg/dL LDL Cholesterol Calculated 101(H) <100 mg/dL [facility] Comment:Desirable LDL: less than 100 mg/dLNear Optimal/Above Optimal LDL: 110- 129 mg/dLBorderline High LDL: 130-159 mg/dLHigh LDL: 160-189 mg/dLVery High LDL: greater than or equal to 190 mg/dL HDL Cholesterol 56 >40 mg/dL [facility] Comment:Desirable HDL: great er than 40 mg/dL Note: This HDL assay may give artificially low results in patients with liver disease. Blood Venous blood specimen / Unknown 08/29/2024 10:43 AM EST 08/29/2024 11:33 AM EST us Ethel Krishnan DO LAB BLOOD ORDERABLES Final R esult Performing Organization Address City/[facility] Co de Phone Number [facility] [address] [place], [place] [phone] * (ABNORMAL) Basic Metabolic Panel (08/29/2024 10:43 AM EST) Sodium 143 135 - 145 mmol/L [facility] Potassium 3.7 3.3 - 5.1 mmol/L [facility] Chloride 109(H) 96 - 108 mmol/L [facility] Carbon Dioxide 30(H) 22 - 29 mmol/L [facility] Anion Gap 8(L) 12 - 20 [facility] Urea Nitrogen (BUN) 11 9 - 16 mg/dL [facility] Creatinine, Serum 0.69 0.5 - 1.4 mg/dL [facility] Estimated Glomerular Filt Rate >60 [facility] Comment:Chronic Kidney Disea se: Estimated GFR < 60 mL/min/1.17y7Vslenh Kidney Disease: Estimated GFR < 15 mL/min/1.73m2 Glucose 93 60 - 115 mg/dL [facility] Calcium 8.8 8.4 - 10.2 mg/dL [facility] Blood Venous blood specimen / Unknown 08/29/2024 10:43 AM EST 08/29/2024 11:33 AM EST Ethel Krishnan DO LAB BLOOD ORDERABLES Final R esult [facility] [address] [place] [phone] * HM PAP/HPV (08/28/2024 6:15 PM EST) us Historical Provider HEALTH MAINTENANCE Final Result * Bacterial Vaginosis (08/28/2024 12:00 AM EST) TRICHOMONAS VAGINALIS DETECTION BY PCR NOT DETECTED Not Detect [facility] BACTERIAL VAGINOSIS DETECTION BY PCR NEGATIVE Negative [facility] Comment:The BV organism targ ets of [...] DETECTION BY PCR NOT DETECTED Not Detect [facility] Winnie glab krusei PCR NOT DETECTED Not Detect [facility] 08/28/2024 08/28/2024 [facility] [place] [place] External Data Provider LAB MICROBIOLOGY - GENERAL ORDERABLES Final Result Performing Organization Address [facility] Co de Phone Number [facility] [address] [place] [address] [phone] * Chlamydia/N. Gonorrhoeae RNA, TMA, Urogenitial (08/28/2024 12:00 AM EST) CT PCR NOT DETECTED Not Detect. [facility] Comment:A not detected test result does [...] psychologicalconsequences. NG PCR NOT DETECTED Not Detect. [facility] Comment:A not detected test result does [...] medical, social or psychologicalconsequences. 08/28/2024 08/28/2024 Narrative [facility] - 08/29/2024 2:26 AM EST Vaginal us Generic External Data Provider LAB MICROBIOLOGY - GENERAL ORDERABLES Final Result Performing Organization Address City/State/[facility] Co de Phone Number [facility] [address] [place] [address] [phone] from Last 3 Months Insurance [facility] C[place] ST[place] AD[place] Care Teams Human Relations Teacher Relationship Specialty Start Date End Date Ethel Krishnan DO [address] [place] [phone] PCP - General Family Medicine 08/20/18
--- OUTSIDE RECORDS SUMMARY | 2024-10-29 17:55 | XMS_ITS | Encounter Summary ---
Author Organization [employer] Address [address] [place] [address] Care Team Providers Care Manager Planning Name Role Phone Ethel Krishnan DO Primary Care Provider Encounter Details Date Type Department Care Team (Late st Contact Info) Description 10/04/2024 Orders Only [facility] [address] [place] [address] Provider, MD Abdias Social History Tobacco Use [...] documented as of this encounter Care Teams Manager Planning Relationship Specialty Start Date End Date Ethel Krishnan DO [address] [place] [address] PCP - General Family Medicine 08/20/18 documented as of this encounter
--- OUTSIDE RECORDS SUMMARY | 2024-10-29 17:55 | XMS_ITS | Encounter Summary ---
Author Organization [employer] Address [address] [place] [address] Care Team Providers Care Experience Planning Strategist Name Role Phone Ethel Krishnan DO Primary Care Provider [phone] Reason for Visit * Reason Comments Med Refill Encounter Details Date Type Department Care Team (Late st Contact Info) Description 05/20/2024 Refill [facility] [address] [place] [address] Ethel Krishnan DO [address] [place] [address] Social History Tobacco Use Types Packs/Day Years [...] documented as of this encounter Care Teams Experience Planning Strategist Relationship Specialty Start Date End Date Ethel Krishnan DO [address] [place] [address] PCP - General Family Medicine 08/20/18 documented as of this encounter
--- OUTSIDE RECORDS SUMMARY | 2024-10-29 17:55 | XMS_ITS | Encounter Summary ---
Author Organization [employer] Address [address] [place] [address] Care Team Providers Care Tub Wash Operator Name Role Phone Ethel Krishnan DO Primary Care Provider [phone] Reason for Visit * Reason Comments Med Refill Encounter Details Date Type Department Care Team (Late st Contact Info) Description 03/12/2023 Refill [facility] [address] [place] [address] Ethel Krishnan DO [address] [place] [address] Social History Tobacco Use Types Packs/Day Years [...] documented as of this encounter Care Teams Tub Wash Operator Relationship Specialty Start Date End Date Ethel Krishnan DO [address] [place] [address] PCP - General Family Medicine 08/20/18 documented as of this encounter
--- OUTSIDE RECORDS SUMMARY | 2024-10-29 17:55 | XMS_ITS | Encounter Summary ---
Author Organization [employer] Address [address] [place] [address] Care Team Providers Care Core Extruder Name Role Phone Ethel Krishnan DO Primary Care Provider Reason for Visit * Reason Onset Date Comments Appointment Request 02/15/2024 Encounter Details Date Type Department Care Team ([facility] st Contact Info) Description 02/15/2024 Telephone [facility] [address] [place] [address] Ethel Krishnan DO [address] [place] [address] Appointment Request Social History Tobacco Use Types [...] recall for February. Please contact pt at [phone] documented in this encounter Plan of Treatment Not on file documented as of this encounter Visit Diagnoses Not on filedocumented in this encounter Additional Health Concerns Assessment Noted Time PHQ-9 Depression Total Score: 0 02/02/20 23 11:15 AM EDT documented as of this encounter Care Teams Core Extruder Relationship Specialty Start Date End Date Ethel Krishnan DO [address] [place] [address] PCP - General Family Medicine 08/20/18 documented as of this encounter
--- OUTSIDE RECORDS SUMMARY | 2024-10-29 17:56 | XMS_ITS | Encounter Summary ---
Author Organization [employer] Address [address] [place] [address] Care Team Providers Care Crm Functional Analyst Name Role Phone Ethel Krishnan DO Primary Care Provider [phone] Reason for Visit * Reason Onset Date Comments Nurse Triage 01/31/2024 Encounter Details Date Type Department Care Team (Late st Contact Info) Description 01/31/2024 Telephone [facility] [address] [place] [address] Ethel Krishnan DO [address] [place] [address] Nurse Triage Social History Tobacco Use Types [...] encounter Miscellaneous Notes * Telephone Encounter - Mary Beth Child - 01/31/2024 2:04 PM EDT [...] documented as of this encounter Care Teams Crm Functional Analyst Relationship Specialty Start Date End Date Ethel Krishnan DO [address] [place] [phone] PCP - General Family Medicine 08/20/18 documented as of this encounter
== END 2024-10-28 15:11 | disposition home or self-care (01) ==
LOC: HO.HOSX 15:10
PROVIDERS: Visit Provider Physician Assistant
DX: M17.12 Unilateral primary osteoarthritis, left knee (principal)
CPT/HCPCS: 99212

== ENCOUNTER 2024-10-28 15:26 | Outpatient (AMB) | payer MEDICAID, SELFPAY ==
[2024-10-28 15:34] VITALS: BMI 39.5
--- NOTE | 2024-10-28 15:34 | A.OFFVIS_ITS ---
Vital Signs 10/28/24 15:34 Height 5 ft 10 in Weight 275 lb BMI 39.5 Intake Visit Reasons: OV - Left knee pain, last inj 08/29/22 Intake Note: Molly is a 38 year old female who presents today for a follow up of her left knee OA, last injection 08/29/22. Patient states that her last injection gave her about 3-4 months of relief and would like a topical cream. Allergies No Known Allergies [No Known Allergies*] Allergy (Verified 10/28/24 15:36) HPI HPI OV - Left knee pain, last inj 08/29/22: Details: Ms. Jasso is a 38-year-old female who presents to the office today for ongoing left knee pain. She did receive a cortisone injection on 08/29/2022 which gave her great relief. She reports that the majority of her pain is in the winter time and therefore is no longer experiencing pain. She is looking for a topical pain cream to alleviate her symptoms. COUNTS INCLUDE 234 BEDS AT THE [facility] Medical History (Updated 10/28/24 @ 16:13 by Charlene Case PA-C) Gout Anemia Obesity Hx gestational diabetes Snoring Anxiety Depression Arthritis Cervical cancer Chronic back pain Encounter for Essure implantation Surgical History History of tonsillectomy and adenoidectomy History of breast augmentation Previous section Family History Mother No problems noted. Father No problems noted. Sister No problems noted. Sister No problems noted. Brother No problems noted. Brother No problems noted. Son No problems noted. Daughter No problems noted. 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 Full range of motion. Crepitus felt with range of motion. NVI. Assessment & Plan Assessment & Plan (1) Osteoarthritis of left knee: Code(s): M17.12 - Unilateral primary osteoarthritis, left knee Category: Medical Plan Ms. Jasso is a 38-year-old female who presents to the office today for ongoing left knee pain. She did receive a cortisone injection on 08/29/2022 which gave her great relief. She reports that the majority of her pain is in the winter time and therefore is no longer experiencing pain. She is looking for a topical pain cream to alleviate her symptoms. On the office today we did discuss repeating cortisone injection however the patient is not having any pain at this time. Therefore, this was declined. I did offer her a topical pain cream which she is interested in trying. This will be sent to [facility] pharmacy. She will follow up p.r.n., sooner if needed. Coding Level of Care Code Est Pt Level 3 (21184) Diagnoses Osteoarthritis of left knee M17.12
--- OUTSIDE RECORDS SUMMARY | 2024-10-28 18:42 | XMS_ITS | Encounter Summary ---
Author Organization [facility] [employer] Address [address] [place] [address] Care Team Providers Care Earth Observations Chief Scientist Name Role Phone Ethel Krishnan DO Primary Care Provider Reason for Visit * Reason Onset Date Comments Appointment Request 07/08/2024 Encounter Details Date Type Department Care Team ([facility] st Contact Info) Description 07/08/2024 Telephone [facility] MEDICINE [address] [place] [address] Ethel Krishnan DO [address] [place] [address] Appointment Request Social History Tobacco Use Types Packs/Day Years Used Date Smoking Tobacco: Former Cigarettes Passive Smoke Exposure: Past Smokeless Tobacco: Never Depression Answer Date Recorded Patient Health Questionnaire-9 Score 7 03/26/2024 Patient Health Questionnaire-9 Score 7 03/26/2024 Last PHQ-9: Questionnaire Data Not on file 0 03/26/2024 Housing Stability Answer Date Recorded What is your housing situation today? I have radha massey 11/02/[address] you li ve. Do you have problems with any of the following? None of the above 11/02/2023 Food Insecurity Answer Date Recorded Within the past 12 months, y ou worried that your food would run out before you got money to buy more: Never True 06/07/2023 Within the past 12 months,th e food you bought just didn't last and you didn't have enough money to get more: Never True Transportation Answer Date Recorded In the past 12 months, has l ack of transportation kept you from medical appts, meetings, work or from getting things needed for daily living? No 06/07/2023 Utilities Answer Date Recorded In the past 12 months, has t he electric, gas, oil or water company threatened to shut off services in your home? No 06/07/2023 Depression Answer Date Recorded Patient Health Questionnaire-2 Score 3 03/26/2024 Comments Unknown Sex and Gender Information Value Date Recorded Sex Assigned at Female 06/19/2022 10:17 AM EDT Legal Sex Female 10:17 AM EDT Gender Identity Female 06/19/2022 10:17 AM EDT Sexual Orientation Straight 07/27/2022 12 :01 PM EST documented as of this encounter Miscellaneous Notes * Telephone Encounter - Scott Lowry - 07/08/2024 3:57 PM EST Tc from pt requesting a Pap appt due to not having one in a while. Pt denied any concerns. Contact pt at [phone] documented in this encounter Plan of Treatment Not on file documented as of this encounter Visit Diagnoses Not on filedocumented in this encounter Additional Health Concerns Assessment Noted Time PHQ-9 Depression Total Score: 7 03/26/20 24 10:08 AM EDT documented as of this encounter Care Teams Earth Observations Chief Scientist Relationship Specialty Start Date End Date Ethel Krishnan DO [address] [place] [id number] PCP - General Family Medicine 08/20/18 documented as of this encounter
--- OUTSIDE RECORDS SUMMARY | 2024-10-28 18:42 | XMS_ITS | Encounter Summary ---
Author Organization [employer] Address [address] [place] [address] Care Team Providers Care Business Objects Report Developer Name Role Phone Ethel Krishnan DO Primary Care Provider [phone] Reason for Visit * Reason Comments Med Refill Encounter Details Date Type Department Care Team (Late st Contact Info) Description 05/20/2024 Refill [facility] MEDICINE [address] [place] [address] Ethel Krishnan DO [address] [place] [address] Social History Tobacco Use Types Packs/Day Years [...] PM EST documented as of this encounter Plan of Treatment Not on file documented as of this encounter Visit Diagnoses Not on filedocumented in this encounter Additional Health Concerns Assessment Noted Time PHQ-9 Depression Total Score: 7 03/26/20 24 10:08 AM EDT documented as of this encounter Care Teams Business Objects Report Developer Relationship Specialty Start Date End Date Ethel Krishnan DO [address] [place] [address] PCP - General Family Medicine 08/20/18 documented as of this encounter
--- OUTSIDE RECORDS SUMMARY | 2024-10-28 18:42 | XMS_ITS | Encounter Summary ---
Author Organization [employer] Address [address] [place] [address] Care Team Providers Care Traffic Controller Cable Name Role Phone Ethel Krishnan DO Primary Care Provider [phone] Reason for Visit * Reason Comments Med Refill Encounter Details Date Type Department Care Team (Late st Contact Info) Description 03/12/2023 Refill [facility] MEDICINE [address] [place] [address] Ethel Krishnan DO [address] [place] [address] Social History Tobacco Use Types Packs/Day Years Used Date Smoking Tobacco: Former Cigarettes Passive Smoke Exposure: Past Smokeless Tobacco: Never Depression Answer Date Recorded Patient Health Questionnaire-9 Score 0 02/01/2023 Depression Answer Date Recorded Patient Health Questionnaire-2 Score 0 02/01/2023 Comments Unknown Sex and Gender Information Value [...] Assessment Noted Time PHQ-9 Depression Total Score: 0 02/02/20 23 11:15 AM EDT documented as of this encounter Care Teams Traffic Controller Cable Relationship Specialty Start Date End Date Ethel Krishnan DO [address] [place] [address] PCP - General Family Medicine 08/20/18 documented as of this encounter
--- OUTSIDE RECORDS SUMMARY | 2024-10-28 18:42 | XMS_ITS | Encounter Summary ---
Author Organization [employer] Address [address] [place] [address] Care Team Providers Care Radiological Metallurgist Name Role Phone Ethel Krishnan DO Primary Care Provider [phone] Reason for Visit * Reason Onset Date Comments Appointment Request 02/15/2024 Encounter Details Date Type Department Care Team ([facility] st Contact Info) Description 02/15/[address] [facility] MEDICINE [address] [place] [address] Ethel Krishnan DO [address] [place] [address] Appointment Request Social History Tobacco Use Types Packs/Day Years Used Date Smoking Tobacco: Former Cigarettes Passive Smoke Exposure: Past Smokeless Tobacco: Never Depression Answer Date Recorded Patient Health Questionnaire-9 Score 0 02/01/2023 Housing Stability Answer Date Recorded What is [...] encounter Miscellaneous Notes * Telephone Encounter - Anayeli Hernandez - 02/15/2024 11:10 AM EDT Tc from pt requesting an appointment with PCP. Pt is on recall for February. Please contact pt at [phone] documented in this encounter Plan of Treatment Not on file documented as of this encounter Visit Diagnoses Not on filedocumented in this encounter Additional Health Concerns Assessment Noted Time PHQ-9 Depression Total Score: 0 02/02/20 23 11:15 AM EDT documented as of this encounter Care Teams Radiological Metallurgist Relationship Specialty Start Date End Date Ethel Krishnan DO [address] [place] [address] PCP - General Family Medicine 08/20/18 documented as of this encounter
--- OUTSIDE RECORDS SUMMARY | 2024-10-28 18:42 | XMS_ITS | Encounter Summary ---
Author Organization [employer] Address [address] [place] [address] Care Team Providers Care Camp Counselor Name Role Phone Ethel Krishnan DO Primary Care Provider [phone] Reason for Visit * Reason Onset Date Comments Nurse Triage 01/31/2024 Encounter Details Date Type Department Care Team (Late st Contact Info) Description 01/31/2024 Telephone [facility] [address] [place] [address] Ethel Krishnan DO [address] [place] [address] Nurse Triage Social History Tobacco Use Types Packs/Day Years [...] encounter Miscellaneous Notes * Telephone Encounter - Mray Beth Child - 01/31/2024 2:04 PM EDT Symptom: Hearing Loss Outcome: Schedule an urgent appointment (within 1 hour) or talk to a nurse or provider soon Reason: Getting worse The caller accepted this outcome Would like to get a hearing test done. documented in this encounter Plan of Treatment Not on file documented as of this encounter Visit Diagnoses Not on filedocumented in this encounter Additional Health Concerns Assessment Noted Time PHQ-9 Depression Total Score: 0 02/02/20 23 11:15 AM EDT documented as of this encounter Care Teams Camp Counselor Relationship Specialty Start Date End Date Ethel Krishnan DO [address] [place] [id number] PCP - General Family Medicine 08/20/18 documented as of this encounter
--- OUTSIDE RECORDS SUMMARY | 2024-10-28 18:42 | XMS_ITS | Clinical Summary ---
Author Organization [employer] Address [address] [place] [address] Care Team Providers Care Electrical/Instrument Technician Name Role Phone HerbertEthel bueno Primary Care Provider [phone] Allergies No known active allergies Medications * This document contains information received from the source organization and may not represent a complete record from that organization. FLUoxetine (PROzac) 10 MG tablet Take 1 tablet (10 mg) by mouth Once per day. 30 tablet 2 4 Active hydrOXYzine pamoate (Vistaril) 25 MG capsule Take 1 capsule (25 mg) by mouth every 6 (six) hours if needed for anxiety. 30 capsule 2 4 03/12/20 25 Active fluticasone (Flonase) 50 MCG/ACT nasal sprayIndication s:Bilateral otitis media with effusion ADMINISTER 1-2 SPRAYS INTO EACH NOSTRIL ONCE PER DAY. SHAKE GENTLY. BEFORE FIRST USE, PRIME PUMP. AFTER USE, CLEAN TIP AND REPLACE CAP. 48 mL 4 03/25/20 25 Active cholecalciferol (D3) 50 MCG (1999 UT) tabletIndicatio ns:Vitamin D deficiency TAKE 1 TABLET BY MOUTH EVERY DAY 90 tablet 1 4 Active Multiple Vitamin (Daily-David Multivitamin) tablet TAKE 1 TABLET BY MOUTH EVERY DAY WITH FOOD 90 tablet 1 4 Active topiramate (Topamax) 50 MG tablet Take 1 tablet (50 mg) by mouth 2 times daily. 180 tablet 1 5 08/29/19 Active tretinoin (Retin-A) 0.025 % cream Apply topically at bedtime. 45 g 3 5 08/29/19 26 Active benzoyl peroxide (PanOxyl Foaming Wash) 10 % external wash Apply topically 2 (two) times a week. 227 g 3 5 09/01/19 26 Active ferrous sulfate 325 (65 Fe) MG tablet Take 1 tablet (325 mg) by mouth 3 (three) times a week. 36 tablet 3 5 08/29/19 26 Active Active Problems Problem Noted Date Diagnosed Date Moderate episode of recurrent major depressive d isorder 04/08/2024 Healthcare maintenance 11/12/2023 Assessment & Plan (11/12/2023 2:45 PM EDT): -she declines flu vaccine -she declines COVID vaccine -s/p Tdap Sep 2019 -she declines pneumovax -Hep A/B immune -pap wnl/HPV pos Mar 2016, s/p LEEP May 2016, pap with ASCUS Jan 2017, s/p negative colpo Apr 2017, pap nml/HPV negative Apr 2018 with [facility], will have pap appt scheduled -fasting labs wnl JAN 2023->repeat prior to next visit -STI/HIV screen negative JAN 2023 Elevated BP without diagnosis of hypertension Assessment & Plan (11/12/2023 2:42 PM EDT): BP significantly elevated w/ strong FHx HTN, likely essential HTN -she declines initiation antihypertensive -she agrees to start home BP monitoring for 1 mos -BP TVX check to review rdgs in 1 mos, advised pt if BP still elevated, she will need to start antihypertensive -advised go to ED if severe JONES, CP, or vision changes Chronic venous insufficiency 11/12/2023 Assessment & Plan (11/12/2023 2:40 PM EDT): S/P L-RFA JUL 2023 with improvement in sx -encouraged LE elevation -encouraged compression socks daily -encouraged schedule f/u with vascular Fatigue 11/12/2023 Assessment & Plan (11/12/2023 2:43 PM EDT): Likely multifactorial -check basic labs -referred for sleep study -advised contact [facility] if sx change or worsen Sleep-disordered breathing 11/12/2023 Assessment & Plan (11/12/2023 2:44 PM EDT): Probable SAIDA -referred for sleep study Major depression, recurrent, chronic 10/23/2016 Assessment & Plan (11/12/2023 2:39 PM EDT): With probable PTSD, mood improved -she denies any SI/HI -she has the number for crisis and contracts for safety -she is not interested in med mgmt at this time -she declines referral to therapist BMI 39.0-39.9,adult 10/23/2016 Assessment & Plan (11/12/2023 2:46 PM EDT): Wt down >30 lbs since last OV with me, desiring continued wt loss -congratulated pt on wt loss -she is not interested in injectable (GLP-1) med mgmt -she agrees to trial topamax to help decrease appetite -encouraged trial [employer] membership -check fasting labs today Chronic low back pain 09/02/2015 Encounters Date Type Department Care Team Description 10/04/2024 Orders Only [facility] [address] [place] [phone] Provider, MD Abdias 09/11/2024 Telephone [facility] [address] [place] [phone] Ethel Krishnan DO Results 08/29/2024 10:15 AM EST Office Visit [facility] [address] [place] [phone] Ethel Krishnan DO Major depression, recurrent, chronic (CMS/HCC) (Primary Dx); Chronic venous insufficiency; Elevated BP without diagnosis of hypertension; Sleep-disordered breathing; Abnormal uterine bleeding; Anemia, unspecified type; Chronic pain of left knee; Multiple acquired skin tags; Comedonal acne; Healthcare maintenance; BMI 40.0-44.9, adult (CMS/HCC) 08/29/2024 Travel 08/23/2024 Refill [facility] [address] [place] [address] Ethel Krishnan DO from Last 3 Months Immunizations Name Administration Dates Next Due HPV, Bivalent 11/22/2009 TD (adult), 2 Lf tetanus tox oid, preservative free, adsorbed 11/22/2009 Tdap 09/22/2019 Social History Tobacco Use Types Packs/Day Years Used Date Smoking Tobacco: Former Cigarettes Passive Smoke Exposure: Past Smokeless Tobacco: Never Tobacco Cessation:Counseling Given: Not Answered Alcohol Use Standard Drinks/Week Comments Never 0 (1 standard drink = 0.6 oz pur e alcohol) Depression Answer Date Recorded Patient Health Questionnaire-9 [...] Date Recorded Patient Health Questionnaire-2 Score 0 08/29/2024 Comments No Sex and Gender Information Value Date Recorded Sex Assigned at Female 06/19/2022 10:17 AM EDT Legal Sex Female 10:17 AM EDT Gender Identity Female 06/19/2022 10:17 AM EDT Sexual Orientation Straight 07/27/2022 12 :01 PM EST Last Filed Vital Signs Vital Sign Reading Time Taken Comments Blood Pressure 132/78 08/29/2024 10:00 AM EST Pulse 86 08/29/2024 10:00 AM EST Temperature 36.3 ??C (97.4 ??F) 08/29/2024 10:[address] Respiratory Rate 18 08/29/2024 10:00 AM EST Oxygen Saturation 96% 03/25/2024 12:58 PM EDT Inhaled Oxygen Concentration - - Weight 125 kg (275 lb) 08/29/2024 10:00 AM EST Height 175.3 cm (5' 9 ) 02/28/2024 10:44 AM EDT Body Mass Index 40.61 02/28/2024 10:44 AM EDT Plan of Treatment Health Maintenance Due Date Last Done Comments Dental Oral Exam 1984 Dental Prophylaxis 1984 Dental X-Ray: Bitewings 1984 Dental X-Ray: Full Mouth 1984 Alcohol/Substance Use Screening 1996 Family Planning (PISQ) 12/27/1999 Hepatitis B Vaccines (1 of 3 - 19+ 3-dose series) 12/27/2003 HPV Vaccines (2 - 3-dose series) 12/20/2009 11/22/2009 COVID-19 Vaccine ( - season) 2024 Influenza Vaccine (#1) 2024 SDOH Screening 11/01/2024 11/02/2023 Depression Screening 08/29/2025 08/29/2024, 03/26/20 24 Tobacco Screening 08/29/2025 08/29/2024 Cervical Cancer Screening 08/28/2029 HPV/Cotest 08/28/2029 Pap Smear 08/28/2029 08/28/2024 Lipid Panel 08/29/2029 08/29/2024, 07/08/2023, 11/12/2023, Additional history exists DTaP/Tdap/Td Vaccines (2 - Td or Tdap) 09/22/2029 09/22/2019, 11/22/2009 Zoster Vaccines (1 of 2) 2034 RSV Patients and Patients Aged 60 years or older (1 - 1-dose 75+ series) 12/27/2059 HIV Screening Completed 08/29/2024, 03/2 12/2023, 02/13/2023, Additional history exists Hepatitis C Screening Completed 08/29/2024 , 11/12/2023, 02/13/2023, Additional history exists HIB Vaccines Aged Out No longer eligi ble based on patient's age to complete this topic Hepatitis A Vaccines Aged Out No long er eligible based on patient's age to complete this topic IPV Vaccines Aged Out No longer eligi ble based on patient's age to complete this topic Meningococcal Vaccine Aged Out No yazan anna marie eligible based on patient's age to complete this topic Pneumococcal Vaccine: Pediatrics (0 to 5 Years) and At-Risk Patients (6 to 49) Years) Aged Out No longer eligible based on patient's age to complete this topic RSV under 20 months Aged Out No longe r eligible based on patient's age to complete this topic Rotavirus Vaccines Aged Out No longer eligible based on patient's age to complete this topic Procedures Procedure Name Priority Date/Time Associated Diagnosis Comments POCT GLYCATED HEMOGLOBIN, TOTAL Routine 08/29/2024 11:27 AM EST Healthcare maintenance RPR (MONITOR) W/REFL TITER Routine 08/29/2024 10:43 AM EST Major depression, recurrent, chronic (CMS/HCC) Chronic venous insufficiency Elevated BP without diagnosis of hypertension Sleep-disordered breathing Abnormal uterine bleeding Healthcare maintenance BMI 40.0-44.9, adult (CMS/HCC) Comedonal acne HEPATITIS C AB W/REFL TO HCV RNA, QN, PCR Routine 08/29/2024 10:43 AM EST Major depression, recurrent, chronic (CMS/HCC) Chronic venous insufficiency Elevated BP without diagnosis of hypertension Sleep-disordered breathing Abnormal uterine bleeding Healthcare maintenance BMI 40.0-44.9, adult (CMS/HCC) Comedonal acne HIV 1/2 ANTIGEN/ANTIBODY, FOURTH GENERATION W/RFL Routine 08/29/2024 10:43 AM EST Major depression, recurrent, chronic (CMS/HCC) Chronic venous insufficiency Elevated BP without diagnosis of hypertension Sleep-disordered breathing Abnormal uterine bleeding Healthcare maintenance BMI 40.0-44.9, adult (CMS/HCC) Comedonal acne BASIC METABOLIC PANEL Routine 08/29/2024 10:43 AM EST Major depression, recurrent, chronic (CMS/HCC) Chronic venous insufficiency Elevated BP without diagnosis of hypertension Sleep-disordered breathing Abnormal uterine bleeding Healthcare maintenance BMI 40.0-44.9, adult (CMS/HCC) Comedonal acne CBC Routine 08/29/2024 10:43 AM EST Major depression, recurrent, chronic (CMS/HCC) Chronic venous insufficiency Elevated BP without diagnosis of hypertension Sleep-disordered breathing Abnormal uterine bleeding Healthcare maintenance BMI 40.0-44.9, adult (CMS/HCC) Comedonal acne HEMOGLOBIN A1C Routine 08/29/2024 10:43 AM EST Major depression, recurrent, chronic (CMS/HCC) Chronic venous insufficiency Elevated BP without diagnosis of hypertension Sleep-disordered breathing Abnormal uterine bleeding Healthcare maintenance BMI 40.0-44.9, adult (CMS/HCC) Comedonal acne HEPATIC FUNCTION PANEL Routine 08/29/2024 10:43 AM EST Major depression, recurrent, chronic (CMS/HCC) Chronic venous insufficiency Elevated BP without diagnosis of hypertension Sleep-disordered breathing Abnormal uterine bleeding Healthcare maintenance BMI 40.0-44.9, adult (CMS/HCC) Comedonal acne VITAMIN D,25-OH,TOTAL,IA Routine 08/29/2024 10:43 AM EST Major depression, recurrent, chronic (CMS/HCC) Chronic venous insufficiency Elevated BP without diagnosis of hypertension Sleep-disordered breathing Abnormal uterine bleeding Healthcare maintenance BMI 40.0-44.9, adult (CMS/HCC) Comedonal acne TSH Routine 08/29/2024 10:43 AM EST Major depression, recurrent, chronic (CMS/HCC) Chronic venous insufficiency Elevated BP without diagnosis of hypertension Sleep-disordered breathing Abnormal uterine bleeding Healthcare maintenance BMI 40.0-44.9, adult (CMS/HCC) Comedonal acne LIPID PANEL, STANDARD Routine 08/29/2024 10:43 AM EST Major depression, recurrent, chronic (CMS/HCC) Chronic venous insufficiency Elevated BP without diagnosis of hypertension Sleep-disordered breathing Abnormal uterine bleeding Healthcare maintenance BMI 40.0-44.9, adult (CMS/HCC) Comedonal acne T4, FREE Routine 08/29/2024 10:43 AM EST Major depression, recurrent, chronic (CMS/HCC) Chronic venous insufficiency Elevated BP without diagnosis of hypertension Sleep-disordered breathing Abnormal uterine bleeding Healthcare maintenance BMI 40.0-44.9, adult (CMS/HCC) Comedonal acne HEPATITIS B SURFACE ANTIBODY, QUALITATIVE Routine 08/29/2024 10:43 AM EST BMI 45.0-49.9, adult (CMS/HCC) HM PAP/HPV Routine 08/28/2024 6:15 PM EST BACTERIAL VAGINOSIS PANEL Routine 08/28/2024 12:00 AM EST CHLAMYDIA/N. GONORRHOEAE RNA, TMA, UROGENITAL Routine 08/28/2024 12:00 AM EST from Last 3 Months Results * POCT HGB A1C (08/29/2024 11:27 AM EST) Hemoglobin A1C 5.3 4.0 - 6.0 % QC Media Lot # [id number] Lot# Expiration Date [id number] Blood 08/29/2024 11:2 7 AM EST Ethel Krishnan DO POINT OF CARE TEST ENTER/MARIVEL T ORDERABLES Final Result * Vitamin D, 25-Hydroxy, Total, Immunoassay (08/29/2024 10:43 AM EST) Vitamin D 25-OH Total 70.6 >30 ng/mL [facility] Comment:Health Based Referen ce Values*< 20 ng/mL Wackqrhaf18-08 ng/mL Insufficient> 30 ng/mL Sufficient*Reina MCARTHUR. N Engl J Med. 2007;357:266-280Care must be taken in interpreting Vitamin D results fromdifferent laboratories and methodologies. Published datademonstrated that results from patients undergoinghemodialysis may show a negative bias when tested withvarious automated 25-OH vitamin D assays when compared toLC-MS/MS.When testing samples from patients whose predominant form ofVitamin D is Vitamin D2, such as patients receiving VitaminD2 supplementation, results that are subtherapeutic shouldbe confirmed with another method such as LC-MS/MS. Blood Venous blood specimen / Unknown 08/29/2024 10:43 AM EST 08/29/2024 11:33 AM EST us Ethel Krishnan DO LAB BLOOD ORDERABLES Final R esult Performing Organization Address [facility] Co de Phone Number [facility] [address] [place] [phone] * Hepatitis C Antibody with Reflex to HCV, RNA, Quantitative, Real-Time PCR (08/29/2024 10:43 AM EST) Hepatitis C Antibody Nonreactive Nonreactive [facility] Comment:Antibodies to HCV no t detected; does not exclude early acuteHCV infection. Blood Venous blood specimen / Unknown 08/29/2024 10:43 AM EST 08/29/2024 11:33 AM EST us Ethel Krishnan DO LAB BLOOD ORDERABLES Final R esult Performing Organization Address [facility] de Phone Number [facility] [address] [place] [phone] * RPR (Monitor) with Reflex to??Titer (08/29/2024 10:43 AM EST) RPR (Monitor) w/Refl Titer NON-REACTI VE NON-REACT YUMIKO [facility] Comment:THIS TEST WAS PERFOR MED AT:[address] [place] [phone] SHULTZ MD Rapid Plasma Reagin Ab Titer TNP [facility] Blood Venous blood specimen / Unknown 08/29/2024 10:43 AM EST 08/29/2024 11:33 AM EST Ethel Krishnan DO LAB BLOOD ORDERABLES Final R esult Performing Organization Address City/[facility]/ZIP Co de Phone Number [facility] [address] [place] [phone] * HIV-1/2 Antigen and Antibodies, Fourth Generation, with Reflexes (08/29/2024 10:43 AM EST) HIV AB/AG Nonreactive Nonreactive [facility] Comment:HIV-1 p24 Ag and/or HIV-1/HIV-2 Ab not detected.A test result that is nonreactive does not exclude thepossibility of exposure to or infection with HIV-1 and/orHIV-2. Nonreactive results in this assay for individualswith prior exposure to HIV-1 and/or HIV-2 may be due toantigen and antibody levels that are below the limit ofdetection of this assay.The Mango-Mate HIV Ag/Ab Combo assay result andsupplemental assay results should be interpreted inconjunction with the patient's clinical presentation,history and other laboratory results. If the results areinconsistent with clinical evidence, additional testing issuggested to confirm the result. Blood Venous blood specimen / Unknown 08/29/2024 10:43 AM EST 08/29/2024 11:33 AM EST Ethel Krishnan DO LAB BLOOD ORDERABLES Final R esult Performing Organization Address [facility] Co de Phone Number [facility] [address] [place] [phone] * Hepatitis B Surface Antibody, Qualitative (08/29/2024 10:43 AM EST) ~Hepatitis B Surface Antibody REACTIVE Nonreactive [facility] Comment:REACTIVE: > 11.99 mI U/mL Blood Venous blood specimen / Unknown 08/29/2024 10:43 AM EST 08/29/2024 11:33 AM EST Ethel Krishnan DO LAB BLOOD ORDERABLES Final R esult Performing Organization Address [facility] Co de Phone Number [facility] [address] [place] [phone] * (ABNORMAL) CBC (08/29/2024 10:43 AM EST) White Blood Count 9.9 4.8 - 10.8 X10*3/uL [facility] Red Blood Count 4.77 4.20 - 5.50 X10*6/uL [facility] Hemoglobin 13.6 12.0 - 16.0 g/dl [facility] Hematocrit 40.7 37.0 - 47.0 % [facility] Mean Corpuscular Volume 85.3 80.0 - 98.0 fL [facility] Mean Corpuscular Hemoglobin 28.5 27.0 - 33.0 pg [facility] Mean Corpuscular HGB Conc 33.4 31.0 - 35.0 g/dl [facility] Red Cell Distribution Width 13.7 11.0 - 16.0 % [facility] Platelet Count 261 160 - 400 X10*3/uL [facility] Mean Platelet Volume 8.0(L) 9.4 - 12.3 fL [facility] NRBC Pct Auto 0.0 0.0 - 0.2 /100WBC [facility] NRBC Abs Auto 0.000 0.0 - 0.012 X10*3/uL [facility] Blood Venous blood specimen / Unknown 08/29/2024 10:43 AM EST 08/29/2024 11:33 AM EST us Ethel Krishnan DO LAB BLOOD ORDERABLES Final R esult [facility] [address] [place] [phone] * TSH (08/29/2024 10:43 AM EST) Thyroid Stimulating Hormone 3.09 0.32 - 4.0 uIU/mL [facility] Comment:Note: A sustained TS H level above 2.5 uIU/mL may warrant further investigation. TSH 3rd Generation ([facility]) Blood Venous blood specimen / Unknown 08/29/2024 10:43 AM EST 08/29/2024 11:33 AM EST Ethel Krishnan DO LAB BLOOD ORDERABLES Final R esult Performing Organization Address City/[facility]/ZIP Co de Phone Number [facility] [address] [place] [phone] * T4, Free (08/29/2024 10:43 AM EST) Free T4 (Free Thyroxine) 1.05 0.71 - 1.85 ng/dL [facility] Blood Venous blood specimen / Unknown 08/29/2024 10:43 AM EST 08/29/2024 11:33 AM EST Ethel Krishnan DO LAB BLOOD ORDERABLES Final R esult Performing Organization Address City/[facility] Co de Phone Number [facility] [address] [place] [address] [phone] * Hemoglobin A1c (08/29/2024 10:43 AM EST) Hemoglobin A1c 5.3 <6.0 % [facility] Comment:Hemoglobin A1C Refer ence Range Adults: 4.8 - 6.0 % Non diabetic: < 6.0 % Goal: < 7.0 %Additional Action Suggested: > 8.0 %Note: Hemoglobin A1c results are invalid for patients with abnormal amounts of HbF. Blood transfusions may impact the HbA1c concentration in the patient sample. Estimated Average Glucose 105 mg/dL [facility] Comment:eAG = Estimated ave rage glucose which is %A1C expressed asaverage glucose, using the formula of the [id number] Glucose study (ADAG), Diabetes Care, Vol.31,#8,Mar. 2007 Blood Venous blood specimen / Unknown 08/29/2024 10:43 AM EST 08/29/2024 11:33 AM EST Ethel Aguileracsak DO LAB BLOOD ORDERABLES Final R esult [facility] [address] [place] [address] [phone] * Hepatic Function Panel (08/29/2024 10:43 AM EST) Bilirubin, Total 0.5 0.0 - 1.0 mg/dL [facility] Bilirubin, Direct 0.1 0.0 - 0.5 mg/dL [facility] Aspartate Amino Transferase 19 5 - 31 U/L [facility] Alanine Aminotransferase 18 0 - 31 U/L [facility] Total Protein 7.2 6.5 - 8.0 g/dL [facility] Albumin Level 3.7 3.5 - 5.0 g/dL [facility] Alkaline Phosphatase 55 39 - 117 U/L [facility] Blood Venous blood specimen / Unknown 08/29/2024 10:43 AM EST 08/29/2024 11:33 AM EST Ethel Aguileralanette DO LAB BLOOD ORDERABLES Final R esult Performing Organization Address City/[facility]/ZIP Co de Phone Number [facility] [address] [place] [address] [phone] * (ABNORMAL) Lipid Panel, Standard (08/29/2024 10:43 AM EST) Triglycerides 136 <150 mg/dL [facility] Comment:Desirable Triglyceri de: less than 150 mg/dLBorderline High Triglyceride 150-199 mg/dLHigh Triglyceride: 200-499 mg/dLVery High Triglyceride: greater than or equal to 5OO mg/dL Cholesterol 184 <200 mg/dL [facility] Comment:Desirable Cholestero l: less than 200 mg/dLBorderline High Cholesterol: 200-239 mg/dLHigh Cholesterol: greater than 239 mg/dL LDL Cholesterol Calculated 101(H) <100 mg/dL [facility] Comment:Desirable LDL: less than 100 mg/dLNear Optimal/Above Optimal LDL: 110- 129 mg/dLBorderline High LDL: 130-159 mg/dLHigh LDL: 160-189 mg/dLVery High LDL: greater than or equal to 190 mg/dL HDL Cholesterol 56 >40 mg/dL [facility] Comment:Desirable HDL: great er than 40 mg/dL Note: This HDL assay may give artificially low results in patients with liver disease. Blood Venous blood specimen / Unknown 08/29/2024 10:43 AM EST 08/29/2024 11:33 AM EST us Ethel Krishnan DO LAB BLOOD ORDERABLES Final R esult Performing Organization Address City/[facility] Co de Phone Number [facility] [address] [place], [place] [phone] * (ABNORMAL) Basic Metabolic Panel (08/29/2024 10:43 AM EST) Sodium 143 135 - 145 mmol/L [facility] Potassium 3.7 3.3 - 5.1 mmol/L [facility] Chloride 109(H) 96 - 108 mmol/L [facility] Carbon Dioxide 30(H) 22 - 29 mmol/L [facility] Anion Gap 8(L) 12 - 20 [facility] Urea Nitrogen (BUN) 11 9 - 16 mg/dL [facility] Creatinine, Serum 0.69 0.5 - 1.4 mg/dL [facility] Estimated Glomerular Filt Rate >60 [facility] Comment:Chronic Kidney Disea se: Estimated GFR < 60 mL/min/[id number] Kidney Disease: Estimated GFR < 15 mL/min/1.73m2 Glucose 93 60 - 115 mg/dL [facility] Calcium 8.8 8.4 - 10.2 mg/dL [facility] Blood Venous blood specimen / Unknown 08/29/2024 10:43 AM EST 08/29/2024 11:33 AM EST Ethel Krishnan DO LAB BLOOD ORDERABLES Final R esult [facility] [address] [place] [phone] * HM PAP/HPV (08/28/2024 6:15 PM EST) us Historical Provider HEALTH MAINTENANCE Final Result * Bacterial Vaginosis (08/28/2024 12:00 AM EST) TRICHOMONAS VAGINALIS DETECTION BY PCR NOT DETECTED Not Detect [facility] BACTERIAL VAGINOSIS DETECTION BY PCR NEGATIVE Negative [facility] Comment:The BV organism targ ets of the Xpert Xpress MVP test can becommensal in women; Xpert Xpress MVP positive results forbacterial vaginosis should be considered in conjunction withother clinical and patient information to determine thedisease status. Organisms that are not detected by the XpertXpress MVP test have also been reported to be associatedwith BV and aerobic vaginitis.The Xpert Xpress MVP test performance has not been evaluatedin patients under the age of 14. [employer] DETECTION BY PCR NOT DETECTED Not Detect [facility] Winnie glab krusei PCR NOT DETECTED Not Detect [facility] 08/28/2024 08/28/2024 [facility] [place] External Data Provider LAB MICROBIOLOGY - GENERAL ORDERABLES Final Result Performing Organization Address [facility] Co de Phone Number [facility] [address] [place] [address] [phone] * Chlamydia/N. Gonorrhoeae RNA, TMA, Urogenitial (08/28/2024 12:00 AM EST) CT PCR NOT DETECTED Not Detect. [facility] Comment:A not detected test result does not exclude the possibilityof infection because test results can be affected byimproper specimen collection, concurrent antibiotic therapy,or the number of organisms in the specimen which may bebelow the sensitivity of the test. As with many diagnostictests, results from the Xpert CT/NG assay should beinterpreted in conjunction with other laboratory andclinical data available to the clinician.Xpert CT/NG performance has not been evaluated in patientsless than 14 years of age. The assay should not be used forthe evaluationof suspected sexual abuse or for other medico-legalindications. Additional testing is recommended in anycircumstance when false positive or false negative resultscould lead to adverse medical, social or psychologicalconsequences. NG PCR NOT DETECTED Not Detect. [facility] Comment:A not detected test result does not exclude the possibilityof infection because test results can be affected byimproper specimen collection, concurrent antibiotic therapy,or the number of organisms in the specimen which may bebelow the sensitivity of the test. As with many diagnostictests, results from the Xpert CT/NG assay should beinterpreted in conjunction with other laboratory andclinical data available to the clinician.Xpert CT/NG performance has not been evaluated in patientsless than 14 years of age. The assay should not be used forthe evaluationof suspected sexual abuse or for other medico-legalindications. Additional testing is recommended in anycircumstance when false positive or false negative resultscould lead to adverse medical, social or psychologicalconsequences. 08/28/2024 08/28/2024 Narrative [facility] - 08/29/2024 2:26 AM EST Vaginal us Generic External Data Provider LAB MICROBIOLOGY - GENERAL ORDERABLES Final Result Performing Organization Address City/State/[facility] Co de Phone Number [facility] [address] [place] [address] [phone] from Last 3 Months Insurance [facility] [place] AD[place] Care Teams Electrical/Instrument Technician Relationship Specialty Start Date End Date Ethel Krishnan DO [address] [place] [phone] PCP - General Family Medicine 08/20/18
--- OUTSIDE RECORDS SUMMARY | 2024-10-28 18:42 | XMS_ITS | Encounter Summary ---
Author Organization [employer] Address [address] 7[address] [place] [address] Care Team Providers Care Catalyst Concentration Operator Name Role Phone Ethel Krishnan DO Primary Care Provider [phone] Encounter Details Date Type Department Care Team (Late st Contact Info) Description 10/04/2024 Orders Only [facility] [address] [place] [address] Provider, MD Abdias Social History Tobacco Use Types Packs/Day Years Used Date Smoking Tobacco: Former Cigarettes Passive Smoke Exposure: Past Smokeless Tobacco: Never Alcohol Use Standard Drinks/Week Comments Never 0 [...] on file documented as of this encounter Procedures Procedure Name Priority Date/Time Associated Diagnosis Comments HM PAP/HPV Routine 08/28/2024 6:15 PM EST documented in this encounter Results * HM PAP/HPV (08/28/2024 6:15 PM EST) Historical Provider HEALTH MAINTENANCE Final Result documented in this encounter Visit Diagnoses Not on filedocumented in this encounter Additional Health Concerns Assessment Noted Time PHQ-9 Depression Total Score: 7 03/26/20 24 10:08 AM EDT documented as of this encounter Care Teams Catalyst Concentration Operator Relationship Specialty Start Date End Date Ethel Krishnan DO [address] [place] [address] PCP - General Family Medicine 08/20/18 documented as of this encounter
== END 2024-10-28 15:44 | disposition home or self-care (01) ==
LOC: HO.HOS 15:26
PROVIDERS: PCP Family Medicine; Visit Provider Physician Assistant
DX: M17.12 Unilateral primary osteoarthritis, left knee (principal)
CPT/HCPCS: 99213

== ENCOUNTER 2025-01-21 02:02 | Emergency (ER) | payer MEDICAID, SELFPAY ==
--- NOTE | ~2025-01-21 | CT_ITS ---
EXAMINATION: CT HEAD NECK ANGIOGRAPHY WITH IV CONTRAST HISTORY: c/o R arm weakness and tingling for 6 hrs COMPARISON: There are no prior studies available for comparison. TECHNIQUE: Helical axial images were obtained from the skull base to the vertex without contrast per standard departmental protocol. Subsequently, helical axial images were obtained from the aortic arch to the vertex after intravenous injection of contrast per standard Department protocol. MIP/3D reconstructions were obtained and reviewed. One or more of the following techniques was used for dose reduction: Automated exposure control, adjustment of the mA and/or kV according to patient size, use of iterative reconstruction technique. DLP: 1497 mGy-cm FINDINGS: CT BRAIN: BRAIN: The brain parenchyma is unremarkable, demonstrating normal almaguer/white differentiation. The ventricular system is normal in size and configuration. There is no mass effect or midline shift. No intra or extra-axial fluid collections are identified. SINUSES/MASTOID AIR CELLS: The paranasal sinuses, mastoid air cells and middle ear cavities are clear and well pneumatized. ORBITS: The visualized orbits are unremarkable. BONES/SOFT TISSUES: The extracranial soft tissues are unremarkable. No suspicious lytic or sclerotic lesions. CTA NECK: AORTIC ARCH: The visualized portions of the arch as well as innominate, right subclavian, and left subclavian arteries show no hemodynamically significant stenosis. Right common carotid artery: There is no large vessel occlusion or hemodynamically significant stenosis. Right internal carotid artery: There is no large vessel occlusion or hemodynamically significant stenosis. Left common carotid artery: There is no large vessel occlusion or hemodynamically significant stenosis. Left internal carotid artery: There is no large vessel occlusion or hemodynamically significant stenosis. (Extracranial internal carotid artery stenosis estimates are based on use of distal ICA as the denominator.) Right vertebral artery: There is no large vessel occlusion or hemodynamically significant stenosis. Left vertebral artery: There is no large vessel occlusion or hemodynamically significant stenosis. CTA HEAD: Right intracranial ICA: There is no large vessel occlusion, hemodynamically significant stenosis, or aneurysm. Right RAYNE: There is no large vessel occlusion, hemodynamically significant stenosis, or aneurysm. Right MCA: There is no large vessel occlusion, hemodynamically significant stenosis, or aneurysm. Left intracranial ICA: There is no large vessel occlusion, hemodynamically significant stenosis, or aneurysm. Left RAYNE: There is a possible 3 mm aneurysm of the proximal RAYNE versus vessel tortuosity (series 10, image 380). There is no large vessel occlusion or hemodynamically significant stenosis. Left MCA: There is no large vessel occlusion, hemodynamically significant stenosis, or aneurysm. Basilar artery: There is no large vessel occlusion, hemodynamically significant stenosis, or aneurysm. Superior cerebellar arteries: There is no large vessel occlusion, hemodynamically significant stenosis, or aneurysm. Right PIG MACHINE CRANE OPERATOR: There is no large vessel occlusion, hemodynamically significant stenosis, or aneurysm. Left PIG MACHINE CRANE OPERATOR: There is no large vessel occlusion, hemodynamically significant stenosis, or aneurysm. VEINS: Venous enhancement is within normal limits for this technique. SOFT TISSUES: The bilateral parotid, submandibular, and thyroid glands are unremarkable. No laryngeal abnormality is identified. There is no cervical lymphadenopathy. CT/CT angio head neck IMPRESSION: 1. No large vessel occlusion or hemodynamically significant stenosis in the head and neck. 2. Possible 3 mm aneurysm of the proximal RAYNE versus vascular tortuosity. MR angiography or conventional angiography may be helpful. 3. No acute intracranial findings. Electronically signed by: Hair Hernandez MD 01/21/2025 08:02 AM EDT
[2025-01-21 02:09] VITALS: BP 156/108; PULSE 85; RESP 18; TEMP 36.6; O2SAT 100; BMI 44.3
--- NOTE | 2025-01-21 04:37 | ED.EXTPRO ---
HPI - Extremity Problem General Chief complaint: Extremity Problem Stated complaint: right hand is numb Time Seen by Provider: 01/21/25 04:28 Source: patient Mode of arrival: ambulatory Limitations: no limitations History of Present Illness ED Provider: Dr. Karol Vásquez HPI Narrative: Patient comes to the emergency room complaining of right hand numbness. Patient states started approximately 5 hours ago prior to arrival. Patient states it goes from the fingertips up to the forearm. Patient denies any significant weakness. Patient states it is just numbness and tingling. Denies any trauma. Patient denies any other symptoms. Related Data Home Medications ?Medication ?Instructions ?Recorded ?Confirmed multivitamin (Daily Multi-Vitamin 1 tab PO DAILY 07/06/20 08/28/24 tablet) cholecalciferol (vitamin D3) 50 50 mcg PO DAILY 08/10/20 08/28/24 mcg (2,000 unit) capsule ferrous sulfate 325 mg (65 mg 1 tab PO DAILY 08/23/22 08/28/24 iron) tablet Allergies Allergy/AdvReac Type Severity Reaction Status Date / Time No Known Allergies Allergy Verified 01/21/25 02:11 [No Known Allergies*] Review of Systems Review of Systems: Constitutional : No Weight loss, No Fever, No Chills, No Night Sweats, No Fatigue, No Malaise ENT/Mouth : No Hearing loss, No Ear Pain, No Nasal Congestion, No Sinus Pain, No Hoarseness, No sore throat, No Rhinorrhea, No Swallowing Difficulty Eyes: No Eye Pain, No Swelling, No Redness, No Foreign Body, No Discharge, No Vision Changes Cardiovascular : No Chest Pain, No SOB, No Dyspnea on Exertion, No Orthopnea, No Edema, No Palpitations Respiratory : No Cough, No Sputum, No Wheezing, No Smoke Exposure, No Dyspnea Gastrointestinal : No Nausea, No Vomiting, No Diarrhea, No Constipation, No abdominal Pain, No Hematochezia, No Melena Genitourinary : no irregular bleeding, No Dysuria, No Urinary Frequency, No Hematuria, No Urinary Incontinence, No Urgency, No Flank Pain, No Urinary Flow Changes, No Hesitancy Musculoskeletal : No joint pain, No Myalgias, No Joint Swelling Skin : No Skin Lesions, No rash Neuro : No Weakness, No Numbness, complaining of right upper extremity Paresthesias, No Loss of Consciousness, No Dizziness, No Headache Psych : No Anxiety/Panic, No Depression, No SI/HI/AH/VH, No Social Issues, Heme/Lymph: No Bruising, No Bleeding,No Lymphadenopathy Endocrine : No Polyuria, No Polydipsia, No Temperature Intolerance [facility] Past Medical History Medical History Gout Anemia Obesity Hx gestational diabetes Snoring Anxiety Depression Arthritis Cervical cancer Chronic back pain Encounter for Essure implantation Surgical History History of tonsillectomy and adenoidectomy History of breast augmentation Previous section Family History Family History Mother No problems noted. Father No problems noted. Sister No problems noted. Sister No problems noted. Brother No problems noted. Brother No problems noted. Son No problems noted. Daughter No problems noted. 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 Oriented X3. No acute distress. Eyes: Pupils equal, round and reactive to light. ENT: Pharynx normal. Neck: Normal inspection. Neck supple. No lymph nodes noted. No crepitus CVS: Normal heart rate and rhythm. Pulses normal. Normal S1 and S2 Respiratory: No respiratory distress. Breath sounds normal. No Wheezing. No rales Abdomen: Soft and nontender. No rigidity. No distention. Skin: Skin warm and dry. Normal skin color. Normal skin turgor. Extremities: No lower extremity edema, normal range of motion, normal flexion extension, normal strength in upper extremities. Neuro: Oriented X 3. No motor deficit. No sensory deficit. Moving all extremities. No slurred speech. CN 2 through 12 grossly intact Psych: calm, cooperative, normal affect Course Course Course Narrative: Patient complaining of 5+ hours of right hand numbness/tingling without any other deficits. Patient's head CT pending. Labs pending. Medications Administered Discontinued Medications Generic Name Dose Route Start Last Admin Trade Name Freq PRN Reason Stop Dose Admin Iohexol 75 ml 01/21/25 06:06 01/21/25 06:07 Iohexol 350 Mg/Ml 100 Ml Infus..Btl IV 01/21/25 06:07 75 ml ONCE ONE Administration Medical Decision Making Medical Decision Making [facility] Narrative: My interpretation of labs: No significant abnormality in patient's hematology and chemistry CTA scan of the head and neck pending Given the distribution of patient's paresthesia of the right hand, it is unlikely that this would be a TIA/stroke. More likely a musculoskeletal issue, radiculopathy versus nerve entrapment, peripheral neuropathy Patient has no numbness/tingling above the elbow CTA pending Sign-out given to my colleague Dr. Sarabia 08:47I, Dr. Grace have take over the care of this patient, I reviewed pertinent blood work and imaging, re-evaluated the patient when appropriate. CT/CT angio head neck Patient re-evaluated, CT findings discussed with her, she will need outpatient workup, below findings are not clinically relevant to her presentation. Patient presented with paresthesias along her right hand and involving median nerve, she has a positive Tinel sign, reproducing her symptoms. I suspect that this is carpal tunnel, her radial ulnar pulses +2 compartments are soft there is no evidence for septic joint. IMPRESSION: 1. No large vessel occlusion or hemodynamically significant stenosis in the head and neck. 2. Possible 3 mm aneurysm of the proximal RAYNE versus vascular tortuosity. MR angiography or conventional angiography may be helpful. 3. No acute intracranial findings. Admission/Observation Consideration of admission/observation: Escalation of care including admission/observation considered Lab Data 01/21/25 04:57 06/04/25 04:57 Labs: Lab Results 01/21/25 Range/Units 04:57 WBC 8.8 (4.8-10.8) X10*3/uL RBC 4.55 (4.20-5.50) X10*6/uL Hgb 13.2 (12.0-16.0) g/dl Hct 38.1 (37.0-47.0) % MCV 83.7 (80.0-98.0) fL MCH 29.0 (27.0-33.0) pg MCHC 34.6 (31.0-35.0) g/dl RDW 14.3 (11.0-16.0) % Plt Count 248 (160-400) X10*3/uL MPV 7.9 L (9.4-12.3) fL Immature Gran % (Auto) 0.3 (0.0-0.4) % Neut % (Auto) 40.0 L (45-73) % Lymph % (Auto) 47.7 H (20-40) % Pitt % (Auto) 6.9 (2-11) % Eos % (Auto) 4.6 H (0-4) % Baso % (Auto) 0.5 (0-2) % Lymph # (Auto) 4.2 (1.2-4.9) X10*3/uL Pitt # (Auto) 0.6 (0.1-1.2) X10*3/uL Eos # (Auto) 0.4 (0.0-0.4) X10*3/uL Baso # (Auto) 0.0 (0.0-0.2) X10*3/uL Abs Immat Gran (auto) 0.03 (0.00-0.03) X10*3/uL Absolute Neuts (auto) 3.5 (2.0-8.3) x10*3/uL Absolute Nucleated RBC 0.000 (0.0-0.012) X10*3/uL Nucleated RBC % (auto) 0.0 (0.0-0.2) /100WBC Sodium 141 (135-145) mmol/L Potassium 3.5 (3.3-5.1) mmol/L Chloride 109 H (96-108) mmol/L Carbon Dioxide 25 (22-29) mmol/L Anion Gap 11 L (12-20) BUN 11 (9-16) mg/dL Creatinine 0.70 (0.5-1.4) mg/dL Estim Creat Clear Calc 158.8 Estimated GFR > 60 Random Glucose 91 (60-115) mg/dL Calcium 8.4 (8.4-10.2) mg/dL Total Bilirubin 0.2 (0.0-1.0) mg/dL Direct Bilirubin < 0.2 (0.0-0.5) mg/dL AST 20 (5-31) U/L ALT 21 (0-31) U/L Alkaline Phosphatase 58 (39-117) U/L Total Protein 7.0 (6.5-8.0) g/dL Albumin 3.6 (3.5-5.0) g/dL Discharge Plan Discharge Clinical Impression: Numbness and tingling in right hand Patient Disposition: Home, Self-Care Additional Instructions: You were evaluated with numbness of right hand, you did have a CAT scan of the head and neck, there are some nonspecific findings on the CAT scan that I have discussed with the you such as either a twist in your anterior carotid artery or small aneurysm, this is not clinically relevant to her presentation, and something I would not worry about, your primary care provider can follow up on this you may need additional studies such as an MRI, however based on the examination and appears that you have carpal tunnel syndrome and I am referring you to a hand surgeon. Please see information below. You can ice the area, you can take Motrin and Tylenol as needed for pain, and if you have any other issues or concerns come back to the ER Prescriptions: No Action ferrous sulfate 325 mg (65 mg iron) tablet 1 tab PO DAILY cholecalciferol (vitamin D3) 50 mcg (2,000 unit) capsule 50 mcg PO DAILY multivitamin [Daily Multi-Vitamin] Tablet 1 tab PO DAILY Referrals: Kirti Farrell MD [Physician] - Print Language: [place] Irish
[2025-01-21 05:03] LABS: MANUAL DIFF FLAG NO
[2025-01-21 05:04] LABS: Basophils Percent Auto 0.5 % (0-2); Eosinophils Absolute Auto 0.4 X10*3/uL (0.0-0.4); Eosinophils Percent Auto 4.6 % (0-4); Hematocrit 38.1 % (37.0-47.0); Hemoglobin 13.2 g/dl (12.0-16.0); Imm Gran Abs Auto 0.03 X10*3/uL (0.00-0.03); Imm Gran Pct Auto 0.3 % (0.0-0.4); Lymphocytes Absolute Auto 4.2 X10*3/uL (1.2-4.9); Lymphocytes Percent Auto 47.7 % (20-40); Mean Corpuscular HGB Conc 34.6 g/dl (31.0-35.0); Mean Corpuscular Volume 83.7 fL (80.0-98.0); Mean Platelet Volume 7.9 fL (9.4-12.3); Monocytes Absolute Auto 0.6 X10*3/uL (0.1-1.2); Monocytes Percent Auto 6.9 % (2-11); Neutrophils Absolute Auto 3.5 x10*3/uL (2.0-8.3); Platelet Count 248 X10*3/uL (160-400); Red Blood Count 4.55 X10*6/uL (4.20-5.50); Red Cell Distribution Width 14.3 % (11.0-16.0); White Blood Count 8.8 X10*3/uL (4.8-10.8)
[2025-01-21 05:14] VITALS: BP 139/86; PULSE 65; RESP 18; TEMP 36.3; O2SAT 98
[2025-01-21 05:23] LABS: Alanine Aminotransferase 21 U/L (0-31); Albumin Level 3.6 g/dL (3.5-5.0); Alkaline Phosphatase 58 U/L (39-117); Anion Gap 11 (12-20); Aspartate Amino Transferase 20 U/L (5-31); Bilirubin Direct < 0.2 mg/dL (0.0-0.5); Bilirubin Total 0.2 mg/dL (0.0-1.0); Blood Urea Nitrogen 11 mg/dL (9-16); Calcium 8.4 mg/dL (8.4-10.2); Carbon Dioxide 25 mmol/L (22-29); Chloride 109 mmol/L (96-108); Creatinine Clr Calc Pharmacy 158.8; Estimated Glomerular Filt Rate > 60; Glucose Random 91 mg/dL (60-115); Potassium 3.5 mmol/L (3.3-5.1); Sodium 141 mmol/L (135-145)
[2025-01-21] MEDS: iohexoL 350 MG/ML 100 ML INFUS..BTL 75 ML IV (06:07)
[2025-01-21 08:00] VITALS: BP 147/99; PULSE 68; RESP 16; TEMP 36.5; O2SAT 98
[2025-01-21 09:05] VITALS: BP 147/99; PULSE 68; RESP 16; TEMP 36.5; O2SAT 98
== END 2025-01-21 09:06 | disposition home or self-care (01) ==
PROVIDERS: Emergency Medicine; Emergency Provider Emergency Medicine; PCP Family Medicine
DX: R20.2 Paresthesia of skin (principal); R20.0 Anesthesia of skin; R53.1 Weakness; R93.89 Abnormal findings on diagnostic imaging of other specified body structures
CPT/HCPCS: 36415; 70496; 70498; 80048; 80076; 85025; 99284; Q9967

== ENCOUNTER → 2025-01-21 04:34 | Outpatient (BNV) | payer MEDICAID, SELFPAY | PROVIDERS: Emergency Provider Emergency Medicine; PCP Family Medicine; Visit Provider Radiology Diagnostic Radiology | DX: R53.1 Weakness (principal) | CPT/HCPCS: 70496; 70498 ==

== ENCOUNTER 2025-03-11 12:52 | Outpatient (REF) | payer MEDICAID, SELFPAY ==
--- NOTE | 2025-03-11 12:54 | EMG_ITS ---
Chief complaint: She went to the ER for right hand pain that lasted for about 2 days. Denies anymore pain or numbness today. Reason for referral: Evaluate for Carpal Tunnel Syndrome Referred by: Brodie LONG Procedure done: Right upper extremity NCS Precautions and/or limitations: Patient is afraid of needles, needle EMG deferred. The limb temperature was monitored continuously and remained between 32-36 degrees C during the performance of the NCS. Nerve Conduction Studies Anti Sensory Summary Table ?Stim Site NR Onset (ms) Norm Onset (ms) Peak (ms) Norm Peak (ms) O-P Amp (?V) Norm O-P Amp Site1 Site2 Delta-0 (ms) Dist (cm) Tremaine (m/s) Norm Tremaine (m/s) Right Median Anti Sensory (2nd Digit) Wrist ? 2.7 3.3 <3.6 28.4 >10 Wrist 2nd Digit 2.7 14.0 52 Right Ulnar Anti Sensory (5th Digit) Wrist ? 0.9 3.1 <3.7 18.3 >15.0 Wrist 5th Digit 0.9 14.0 156 Motor Summary Table ?Stim Site NR Onset (ms) Norm Onset (ms) O-P Amp (mV) Norm O-P Amp iAmp (mV) Amp (1st) (%) Site1 Site2 Delta-0 (ms) Dist (cm) Tremaine (m/s) Norm Tremaine (m/s) Right Median Motor (Abd Poll Brev) Wrist ? 3.1 <3.9 16.6 >4.5 20.0 100.0 Elbow Wrist 4.0 21.0 53 >45 Elbow ? 7.1 15.8 18.5 95.2 Right Ulnar Motor (Abd Dig Minimi) Wrist ? 2.9 <3.0 7.1 >5 9.7 100.0 B Elbow Wrist 3.8 21.0 55 >45 B Elbow ? 6.7 7.8 10.6 109.9 A Elbow B Elbow 2.0 10.0 50 >45 A Elbow ? 8.7 6.5 8.8 91.5 Comparison Summary Table ?Stim Site NR Peak (ms) Norm Peak (ms) P-T Amp (?V) Site1 Site2 Delta-P (ms) Norm Delta (ms) Right Median/Radial Dig I Comparison (Digit 1 - 10cm) Median ? 2.5 <2.9 68.7 Median Radial 0.0 Radial ? 2.5 <2.8 8.3 FINDINGS: All motor and sensory nerves tested showed normal latencies, amplitudes and conduction velocities. IMPRESSION: 1. This is a normal nerve conduction study. 2. There is no electrodiagnostic evidence for median neuropathy or ulnar neuropathy. Thank you for your kind referral. Darleen Vela MD, MARK Board Certified, [place] [employer] and [employer] (ABPMR) Board Certified, [place] Board [employer] Electrodiagnostic [employer] (ABEM) CODIN MTDD
--- OUTSIDE RECORDS SUMMARY | 2025-03-11 13:13 | XMS_ITS | Clinical Summary ---
Author Organization [employer] Address [address] [place] [address] Care Team Providers Care Roofing Tile Sorter Name Role Phone Ariella Ethel Primary Care Provider [phone] Allergies No known active allergies Medications * [...] CAP. 48 mL 4 03/25/20 25 Active topiramate (Topamax) 50 MG tablet Take 1 tablet (50 mg) by mouth 2 times daily. 180 tablet 1 5 08/29/19 26 Active tretinoin (Retin-A) 0.025 % cream Apply [...] 36 tablet 3 5 08/29/19 26 Active Multiple Vitamin (Daily-David Multivitamin) tablet TAKE 1 TABLET BY MOUTH EVERY DAY WITH FOOD 90 tablet 1 5 Active Diclofenac Sodium 1 % gel Apply 2 g topically if needed in the morning, at noon, in the evening, and at bedtime (pain). 150 g 3 5 Active D3 50 MCG (1999) tabletIndicatio ns:Vitamin D deficiency TAKE 1 TABLET BY MOUTH EVERY DAY 90 tablet 1 5 Active Active Problems Problem Noted Date Diagnosed [...] 2017, pap nml/HPV negative Apr 2018 with [employer], will have pap appt scheduled -fasting labs [...] labs -referred for sleep study -advised contact [facility] if sx change or worsen Sleep-disordered [...] Encounters Date Type Department Care Team Description 02/08/2025 Travel 02/06/2025 Refill [facility] [address] [place] [address] Ethel Krishnan DO Vitamin D deficiency 01/21/2025 3:45 PM EDT Office Visit [facility] [address] [place] [address] Ethel Krishnan DO Major depression, recurrent, chronic (CMS/HCC) (Primary Dx); Chronic venous insufficiency; Elevated BP without diagnosis of hypertension; Sleep-disordered breathing; Abnormal uterine bleeding; Anemia, unspecified type; Chronic pain of left knee; Multiple acquired skin tags; Comedonal acne; Morbid obesity with BMI of 40.0-44.9, adult (CMS/HCC); Healthcare maintenance 01/21/2025 Travel 01/21/2025 Orders Only GENERIC EXTERNAL DATA DEPARTMENT Provider, Generic External Data 01/20/2025 Telephone [facility] [address] [place] [address] [phone] Ethel Krishnan DO chart prep 01/19/2025 Travel from Last 3 Months Immunizations Immunization Administration Dates Next Due HPV, Bivalent 11/22/2009 [...] Date Recorded Patient Health Questionnaire-9 Score 7 01/21/2025 Patient Health Questionnaire-9 Score 7 01/21/2025 Last PHQ-9: Questionnaire Data Not on file 0 01/21/2025 Housing Stability Answer Date Recorded What is your housing situation today? I have radha massey 01/21/[address] you li ve. Do you have problems with any of the following? None of the above 01/21/2025 Food Insecurity Answer Date Recorded Within the past 12 months, y ou worried that your food would run out before you got money to buy more: Never True 01/21/2025 Within the past 12 months,th e food you bought just didn't last and you didn't have enough money to get more: Never True 11/2024 Transportation Answer Date Recorded In the past 12 months, has l ack of transportation kept you from medical appts, meetings, work or from getting things needed for daily living? No 01/21/2025 Utilities Answer Date Recorded In the past 12 months, has t he electric, gas, oil or water company threatened to shut off services in your home? No 01/21/2025 Depression Answer Date Recorded Patient Health Questionnaire-2 Score 2 01/21/2025 Internet Access Answer Date Recorded Internet Access Q1 Yes 01/21/2025 Internet Access Q2 Not on file 01/21/2025 Comments No Sex and Gender Information Value Date Recorded Sex Assigned at Female 06/19/2022 10:17 AM EDT Legal Sex Female 10:17 AM EDT Gender Identity Female 06/19/2022 10:17 AM EDT Sexual Orientation Straight 07/27/2022 12 :01 PM EST Last Filed Vital Signs Vital Sign Reading Time Taken Comments Blood Pressure 128/70 01/21/2025 3:48 PM EDT Pulse 90 01/21/2025 3:48 PM EDT Temperature 36.8 C (98.3 F) 01/21/2025 3:48 PM EDT Respiratory Rate 21 01/21/2025 3:48 PM EDT Oxygen Saturation 98% 01/21/2025 3:48 PM EDT Inhaled Oxygen Concentration - - Weight 140 kg (309 lb) 01/21/2025 3:48 PM EDT Height 175.3 cm (5' 9 ) 01/21/2025 3:48 PM EDT Body Mass Index 45.63 01/21/2025 3:48 PM EDT Plan of Treatment Health Maintenance Due Date Last Done Comments Dental Oral Exam 1984 Dental Prophylaxis 1984 Dental X-Ray: Bitewings 1984 Dental X-Ray: Full Mouth 1984 Alcohol/Substance Use Screening 1996 Family Planning (PISQ) 12/27/1999 Hepatitis B Vaccines (1 of 3 - 19+ 3-dose series) 12/27/2003 HPV Vaccines (2 - 3-dose series) 12/20/2009 11/22/2009 COVID-19 Vaccine ( - 2023- season) 2024 Mammogram 2024 Influenza Vaccine (#1) 2025 Depression Screening 01/21/2026 01/21/2025, 01/22/20 25 SDOH Screening 01/21/2026 01/21/2025 Tobacco Screening 01/21/2026 01/21/2025 Disability Screening 02/08/2026 02/08/2025 Cervical Cancer Screening 08/28/2029 HPV/Cotest 08/28/2029 Pap Smear 08/28/2029 08/28/2024 Lipid Panel 08/29/2029 08/29/2024, 07/1 08/2023, 11/12/2023, Additional history exists DTaP/Tdap/Td Vaccines (2 - Td or Tdap) 09/22/2029 09/22/2019, 11/22/2009 Zoster Vaccines (1 of 2) 2034 RSV Patients and Patients Aged 60 years or older (1 - 1-dose 75+ series) 12/27/2059 HIV Screening Completed 08/29/2024, 10/19, 02/13/2023, Additional history exists Hepatitis C Screening [...] patient's age to complete this topic Meningococcal B Vaccine Aged Out No l onger eligible based on patient's age to complete this topic Meningococcal Vaccine Aged Out No yazan anna marie eligible based on patient's age to complete this topic Pneumococcal Vaccine: Pediatrics (0 to 5 Years) and At-Risk Patients (6 to 49) Years Aged Out No longer eligible based on patient's age to complete this topic RSV under 20 months Aged Out No longe r eligible based on patient's age to complete this topic Rotavirus Vaccines Aged Out No longer eligible based on patient's age to complete this topic Procedures Procedure Name Priority Date/Time Associated Diagnosis Comments CTA HEAD NECK W AND WO CONTRAST Routine 01/21/2025 5:35 AM EDT BASIC METABOLIC PANEL Routine 01/21/2025 4:57 AM EDT HEPATIC FUNCTION PANEL Routine 01/21/2025 4:57 AM EDT CBC WITH AUTO DIFFERENTIAL Routine 01/21/2025 4:57 AM EDT HEPATITIS C AB W/REFL TO HCV RNA, [...] maintenance BMI 40.0-44.9, adult (CMS/HCC) Comedonal acne HM PAP/HPV Routine 08/28/2024 6:15 PM EST from Last 3 Months or Most Recently Relevant to Health Maintenance Results * CTA Head Neck w/ and w/o Contrast (01/21/2025 5:35 AM EDT) Anatomical Region Laterality Modality Head, Neck Computed Tomogra phy 01/21/2025 5:35 AM EDT Narrative 01/21/2025 8:06 AM EDT [place] [address] CT Scan Report Signed Patient: Molly Jasso MR#: [id number] : 1985 Acct:[id number] Age/Sex: 39 / F ADM Date: 01/21/25 Loc: .ED Attending Dr: Ordering Physician: Karol Vásquez MD Date of Service: 01/21/25 Procedure(s): CT angio head neck Accession Number(s): [id number] cc: Ethel Krishnan DO; Karol Vásquez MD Report Number: [id number]: Total DLP = 1497.00 mGy-cm EXAMINATION: CT HEAD NECK ANGIOGRAPHY WITH IV CONTRAST HISTORY: c/o R arm weakness and tingling for 6 hrs COMPARISON: There are no prior studies available for comparison. TECHNIQUE: Helical axial images were obtained from the skull base to the vertex without contrast per standard departmental protocol. Subsequently, helical axial images were obtained from the aortic arch to the vertex after intravenous injection of contrast per standard Department protocol. MIP/3D reconstructions were obtained and reviewed. One or more of the following techniques was used for dose reduction: Automated exposure control, adjustment of the mA and/or kV according to patient size, use of iterative reconstruction technique. DLP: 1497 mGy-cm FINDINGS: CT BRAIN: BRAIN: The brain parenchyma is unremarkable, demonstrating normal almaguer/white differentiation. The ventricular system is normal in size and configuration. There is no mass effect or midline shift. No intra or extra-axial fluid collections are identified. SINUSES/MASTOID AIR CELLS: The paranasal sinuses, mastoid air cells and middle ear cavities are clear and well pneumatized. ORBITS: The visualized orbits are unremarkable. BONES/SOFT TISSUES: The extracranial soft tissues are unremarkable. No suspicious lytic or sclerotic lesions. CTA NECK: AORTIC ARCH: The visualized portions of the arch as well as innominate, right subclavian, and left subclavian arteries show no hemodynamically significant stenosis. Right common carotid artery: There is no large vessel occlusion or hemodynamically significant stenosis. Right internal carotid artery: There is no large vessel occlusion or hemodynamically significant stenosis. Left common carotid artery: There is no large vessel occlusion or hemodynamically significant stenosis. Left internal carotid artery: There is no large vessel occlusion or hemodynamically significant stenosis. (Extracranial internal carotid artery stenosis estimates are based on use of distal ICA as the denominator.) Right vertebral artery: There is no large vessel occlusion or hemodynamically significant stenosis. Left vertebral artery: There is no large vessel occlusion or hemodynamically significant stenosis. CTA HEAD: Right intracranial ICA: There is no large vessel occlusion, hemodynamically significant stenosis, or aneurysm. Right RAYNE: There is no large vessel occlusion, hemodynamically significant stenosis, or aneurysm. Right MCA: There is no large vessel occlusion, hemodynamically significant stenosis, or aneurysm. Left intracranial ICA: There is no large vessel occlusion, hemodynamically significant stenosis, or aneurysm. Left RAYNE: There is a possible 3 mm aneurysm of the proximal RAYNE versus vessel tortuosity (series 10, image 380). There is no large vessel occlusion or hemodynamically significant stenosis. Left MCA: There is no large vessel occlusion, hemodynamically significant stenosis, or aneurysm. Basilar artery: There is no large vessel occlusion, hemodynamically significant stenosis, or aneurysm. Superior cerebellar arteries: There is no large vessel occlusion, hemodynamically significant stenosis, or aneurysm. Right CASUALTY CLAIM ADJUSTER: There is no large vessel occlusion, hemodynamically significant stenosis, or aneurysm. Left CASUALTY CLAIM ADJUSTER: There is no large vessel occlusion, hemodynamically significant stenosis, or aneurysm. VEINS: Venous enhancement is within normal limits for this technique. SOFT TISSUES: The bilateral parotid, submandibular, and thyroid glands are unremarkable. No laryngeal abnormality is identified. There is no cervical lymphadenopathy. CT/CT angio head neck IMPRESSION: 1. No large vessel occlusion or hemodynamically significant stenosis in the head and neck. 2. Possible 3 mm aneurysm of the proximal RAYNE versus vascular tortuosity. MR angiography or conventional angiography may be helpful. 3. No acute intracranial findings. Electronically signed by: Hair Hernandez MD 01/21/2025 08:02 AM EDT RP Dictated By: Hair Hernandez MD Signed By: <Electronically signed by Hair Hernandez MD in OV> 01/21/25 0802 DD/ TD/TT: 01/21/25 0605 Plate Glass Grinder: Procedure Note Donotuseinterpreter, Image - 01/21/[address] [place] [address] [address] Scan Report Signed Patient: Molly Jasso [facility]#: [id number] : 1985Acct:[id number] Age/Sex: 39 / FADM Date: 01/21/25 Loc: .ED Attending Dr: Ordering Physician: Karol Vásquez MD Date of Service: 01/21/25 Procedure(s): CT angio head neck Accession Number(s): [id number] cc: Ethel Krishnan DO; Karol Vásquez MD Report Number: [id number]: Total DLP = 1497.00 mGy-cm EXAMINATION: CT HEAD NECK ANGIOGRAPHY WITH IV CONTRAST HISTORY: c/o R arm weakness and tingling for 6 hrs COMPARISON: There are no prior studies available for comparison. TECHNIQUE: Helical axial images were obtained from the skull base to the vertex without contrast per standard departmental protocol. Subsequently, helical axial images were obtained from the aortic arch to the vertex after intravenous injection of contrast per standard Department protocol. MIP/3D reconstructions were obtained and reviewed. One or more of the following techniques was used for dose reduction: Automated exposure control, adjustment of the mA and/or kV according to patient size, use of iterative reconstruction technique. DLP: 1497 mGy-cm FINDINGS: CT BRAIN: BRAIN: The brain parenchyma is unremarkable, demonstrating normal almaguer/white differentiation. The ventricular system is normal in size and configuration. There is no mass effect or midline shift. No intra or extra-axial fluid collections are identified. SINUSES/MASTOID AIR CELLS: The paranasal sinuses, mastoid air cells and middle ear cavities are clear and well pneumatized. ORBITS: The visualized orbits are unremarkable. BONES/SOFT TISSUES: The extracranial soft tissues are unremarkable. No suspicious lytic or sclerotic lesions. CTA NECK: AORTIC ARCH: The visualized portions of the arch as well as innominate, right subclavian, and left subclavian arteries show no hemodynamically significant stenosis. Right common carotid artery: There is no large vessel occlusion or hemodynamically significant stenosis. Right internal carotid artery: There is no large vessel occlusion or hemodynamically significant stenosis. Left common carotid artery: There is no large vessel occlusion or hemodynamically significant stenosis. Left internal carotid artery: There is no large vessel occlusion or hemodynamically significant stenosis. (Extracranial internal carotid artery stenosis estimates are based on use of distal ICA as the denominator.) Right vertebral artery: There is no large vessel occlusion or hemodynamically significant stenosis. Left vertebral artery: There is no large vessel occlusion or hemodynamically significant stenosis. CTA HEAD: Right intracranial ICA: There is no large vessel occlusion, hemodynamically significant stenosis, or aneurysm. Right RAYNE: There is no large vessel occlusion, hemodynamically significant stenosis, or aneurysm. Right MCA: There is no large vessel occlusion, hemodynamically significant stenosis, or aneurysm. Left intracranial ICA: There is no large vessel occlusion, hemodynamically significant stenosis, or aneurysm. Left RAYNE: There is a possible 3 mm aneurysm of the proximal RAYNE versus vessel tortuosity (series 10, image 380). There is no large vessel occlusion or hemodynamically significant stenosis. Left MCA: There is no large vessel occlusion, hemodynamically significant stenosis, or aneurysm. Basilar artery: There is no large vessel occlusion, hemodynamically significant stenosis, or aneurysm. Superior cerebellar arteries: There is no large vessel occlusion, hemodynamically significant stenosis, or aneurysm. Right CASUALTY CLAIM ADJUSTER: There is no large vessel occlusion, hemodynamically significant stenosis, or aneurysm. Left CASUALTY CLAIM ADJUSTER: There is no large vessel occlusion, hemodynamically significant stenosis, or aneurysm. VEINS: Venous enhancement is within normal limits for this technique. SOFT TISSUES: The bilateral parotid, submandibular, and thyroid glands are unremarkable. No laryngeal abnormality is identified. There is no cervical lymphadenopathy. CT/CT angio head neck IMPRESSION: 1. No large vessel occlusion or hemodynamically significant stenosis in the head and neck. 2. Possible 3 mm aneurysm of the proximal RAYNE versus vascular tortuosity. MR angiography or conventional angiography may be helpful. 3. No acute intracranial findings. Electronically signed by: Hair Hernandez MD 01/21/2025 08:02 AM EDT RP Dictated By: Hair Hernandez MD Signed By: <Electronically signed by Hair Hernandez MD in OV> 01/21/25 0802 DD/ 0535 TD/TT: 01/21/25 0605 Plate Glass Grinder: [facility] External Provider IMG CT PROCEDURES Final Result * (ABNORMAL) CBC auto differential (01/21/2025 4:57 AM EDT) White Blood Count 8.8 4.8 - 10.8 X10*3/uL [facility] Red Blood Count 4.55 4.20 - 5.50 X10*6/uL [facility] Hemoglobin 13.2 12.0 - 16.0 g/dl [facility] Hematocrit 38.1 37.0 - 47.0 % [facility] Mean Corpuscular Volume 83.7 80.0 - 98.0 fL [facility] Mean Corpuscular Hemoglobin 29.0 27.0 - 33.0 pg [facility] Mean Corpuscular HGB Conc 34.6 31.0 - 35.0 g/dl [facility] Red Cell Distribution Width 14.3 11.0 - 16.0 % [facility] Platelet Count 248 160 - 400 X10*3/uL [facility] Mean Platelet Volume 7.9(L) 9.4 - 12.3 fL [facility] Neutrophils Percent Auto 40.0(L) 45 - 73 % [facility] Imm Gran Pct Auto 0.3 0.0 - 0.4 % [facility] Lymphocytes Percent Auto 47.7(H) 20 - 40 % [facility] Monocytes Percent Auto 6.9 2 - 11 % [facility] Eosinophils Percent Auto 4.6(H) 0 - 4 % [facility] Basophils Percent Auto 0.5 0 - 2 % [facility] NRBC Pct Auto 0.0 0.0 - 0.2 /100WBC [facility] Neutrophils Absolute Auto 3.5 2.0 - 8.3 x10*3/uL [facility] Imm Gran Abs Auto 0.03 0.00 - 0.03 X10*3/uL [facility] Lymphocytes Absolute Auto 4.2 1.2 - 4.9 X10*3/uL [facility] Monocytes Absolute Auto 0.6 0.1 - 1.2 X10*3/uL [facility] Eosinophils Absolute Auto 0.4 0.0 - 0.4 X10*3/uL [facility] Basophils Absolute Auto 0.0 0.0 - 0.2 X10*3/uL [facility] NRBC Abs Auto 0.000 0.0 - 0.012 X10*3/uL [facility] 01/21/2025 4:57 AM EDT 01/21/2025 5:01 AM EDT us Generic External Data Provider LAB BLOOD ORDERAB LES Final Result [facility] [address] [place] [phone] * Hepatic Function Panel (01/21/2025 4:57 AM EDT) Bilirubin, Total 0.2 0.0 - 1.0 mg/dL [facility] Bilirubin, Direct <0.2 0.0 - 0.5 mg/dL [facility] Aspartate Amino Transferase 20 5 - 31 U/L [facility] Alanine Aminotransferase 21 0 - 31 U/L [facility] Total Protein 7.0 6.5 - 8.0 g/dL [facility] Albumin Level 3.6 3.5 - 5.0 g/dL [facility] Alkaline Phosphatase 58 39 - 117 U/L [facility] 01/21/2025 4:57 AM EDT 01/21/2025 5:01 AM EDT us Generic External Data Provider LAB BLOOD ORDERAB LES Final Result [facility] [address] [place] [phone] * (ABNORMAL) Basic Metabolic Panel (01/21/2025 4:57 AM EDT) Sodium 141 135 - 145 mmol/L [facility] Potassium 3.5 3.3 - 5.1 mmol/L [facility] Chloride 109(H) 96 - 108 mmol/L [facility] Carbon Dioxide 25 22 - 29 mmol/L [facility] Anion Gap 11(L) 12 - 20 [facility] Urea Nitrogen (BUN) 11 9 - 16 mg/dL [facility] Creatinine, Serum 0.70 0.5 - 1.4 mg/dL [facility] Creatinine Clr Calc Pharmacy 158.8 [facility] Comment:Provided height and weight: 175.26 cm,136.078 kg.eGFR (calculated from the MDRD study equation) and eCrCl(calculated from the Cockcroft-Gault equation) are based ondifferent parameters and may not yield comparable results.If eCrCl result is absurd, please check patient'sheight/weight. Estimated Glomerular Filt Rate >60 [facility] Comment:Chronic Kidney Disea se: Estimated GFR < 60 mL/min/1.07o6Oojlwr Kidney Disease: Estimated GFR < 15 mL/min/1.73m2 Glucose 91 60 - 115 mg/dL [facility] Calcium 8.4 8.4 - 10.2 mg/dL [facility] 01/21/2025 4:57 AM EDT 01/21/2025 5:01 AM EDT us Generic External Data Provider LAB BLOOD ORDERAB LES Final Result Performing Organization Address City/[facility]/ZIP Co de Phone Number [facility] [address] [place] [phone] * Hepatitis C Antibody with Reflex to HCV, RNA, Quantitative, Real-Time PCR (08/29/2024 10:43 AM EST) Hepatitis C Antibody Nonreactive Nonreactive [facility] Comment:Antibodies to HCV no t detected; does not exclude early acuteHCV infection. Blood Venous blood specimen / Unknown 08/29/2024 10:43 AM EST 08/29/2024 11:33 AM EST us Ethel Krishnan DO LAB BLOOD ORDERABLES Final R esult Performing Organization Address [facility] Co de Phone Number [facility] [address] [place] [phone] * HIV-1/2 Antigen and Antibodies, Fourth Generation, with Reflexes (08/29/2024 10:43 AM EST) HIV AB/AG Nonreactive Nonreactive [facility] Comment:HIV-1 p24 Ag and/or HIV-1/HIV-2 Ab not detected.A test result that is nonreactive does not exclude thepossibility of exposure to or infection with HIV-1 and/orHIV-2. Nonreactive results in this assay for individualswith prior exposure to HIV-1 and/or HIV-2 may be due toantigen and antibody levels that are below the limit ofdetection of this assay.The [employer] HIV Ag/Ab Combo assay result andsupplemental assay results should be interpreted inconjunction with the patient's clinical presentation,history and other laboratory results. If the results areinconsistent with clinical evidence, additional testing issuggested to confirm the result. Blood Venous blood specimen / Unknown 08/29/2024 10:43 AM EST 08/29/2024 11:33 AM EST Ethel Ariella LAB BLOOD ORDERABLES Final R esult Performing Organization Address [facility] Co de Phone Number [facility] [address] [place] [phone] * (ABNORMAL) Lipid Panel, Standard (08/29/2024 10:43 AM EST) Triglycerides 136 <150 mg/dL [facility] Comment:Desirable Triglyceri de: less than 150 mg/dLBorderline High Triglyceride 150-199 mg/dLHigh Triglyceride: 200-499 mg/dLVery High Triglyceride: greater than or equal to 5OO mg/dL Cholesterol 184 <200 mg/dL [facility] Comment:Desirable Cholestero l: less than 200 mg/dLBorderline High Cholesterol: 200-239 mg/dLHigh Cholesterol: greater than 239 mg/dL LDL Cholesterol Calculated 101(H) <100 mg/dL [facility] Comment:Desirable LDL: less than 100 mg/dLNear Optimal/Above Optimal LDL: 110- 129 mg/dLBorderline High LDL: 130-159 mg/dLHigh LDL: 160-189 mg/dLVery High LDL: greater than or equal to 190 mg/dL HDL Cholesterol 56 >40 mg/dL [facility] Comment:Desirable HDL: great er than 40 mg/dL Note: This HDL assay may give artificially low results in patients with liver disease. Blood Venous blood specimen / Unknown 08/29/2024 10:43 AM EST 08/29/2024 11:33 AM EST Ethel Krishnan LAB BLOOD ORDERABLES Final R esult Performing Organization Address [facility]/ZIP Co de Phone Number [facility] [address] [place] [phone] * HM PAP/HPV (08/28/2024 6:15 PM EST) us Historical Provider HEALTH MAINTENANCE Final Result from Last 3 Months or Most Recently Relevant to Health Maintenance Insurance [facility] C3 [facility] MEDICAID STAND ADULT Care Teams Roofing Tile Sorter Relationship Specialty Start Date End Date Jurak, Ethel, DO [address] [place] [address] PCP - General Family Medicine 08/20/18
== END 2025-03-11 12:53 | disposition home or self-care (01) ==
LOC: HO.NEURO 12:52
PROVIDERS: PCP Family Medicine
DX: R20.0 Anesthesia of skin (principal); R20.2 Paresthesia of skin
CPT/HCPCS: 95909

== ENCOUNTER → 2025-03-11 12:54 | Outpatient (BNV) | payer MEDICAID, SELFPAY | PROVIDERS: PCP Family Medicine; Visit Provider Physical Medicine & Rehabilitation | DX: M79.641 Pain in right hand (principal) | CPT/HCPCS: 95909 ==

== ENCOUNTER → 2025-05-21 09:37 | Outpatient (BNV) | payer MEDICAID, SELFPAY | PROVIDERS: PCP Family Medicine; Visit Provider Radiology Diagnostic Radiology | DX: Z03.89 Encounter for observation for other suspected diseases and conditions ruled out (principal) | CPT/HCPCS: 70544 ==

== ENCOUNTER 2025-05-21 09:40 | Outpatient (REF) | payer MEDICAID, SELFPAY ==
--- NOTE | ~2025-05-21 | MR_ITS ---
EXAMINATION: MR ANGIOGRAPHY BRAIN WITHOUT CONTRAST CLINICAL INFORMATION: Possible 3 mm aneurysm, proximal RAYNE. COMPARISON: Correlated to CT angiogram brain dated January 21, 2025. TECHNIQUE: 3-D [id number], [place]. Maximum intensity projections, [place]. No IV contrast. FINDINGS: Anterior cerebral circulation: ICAs: No flow signal gap or abrupt cut off. MCA's: No flow signal gap or abrupt cut off. Bifurcation/trifurcation demonstrated no flow signal irregularity. ACAs: No flow signal gap or abrupt cut off. There is a loop morphology left A2 segment. Anterior communicating artery flow signal is present. Ophthalmic arteries flow signal is present Posterior communicating arteries flow signal is present. Posterior cerebral circulation: V3/V4 segment: Normal flow signal without intraluminal filling defect. Codominant. Posterior inferior cerebral arteries flow signal is normal. Basilar artery flow signal is normal. Superior cerebellar arteries flow signal is normal. stamping die try out worker: No flow signal gap or abrupt cut off. MR/MR angio head wo con IMPRESSION: Loop morphology, left A2 segment without overt aneurysm. Electronically signed by: Randell Morales MD 05/21/2025 10:48 AM EDT
--- OUTSIDE RECORDS SUMMARY | 2025-05-21 10:45 | XMS_ITS | Encounter Summary ---
Author Organization [employer] Address [address] [place] [address] Care Team Providers Care Drying Tunnel Operator Name Role Phone Ethel Krishnan DO Primary Care Provider [phone]- [phone] Reason for Visit * Reason Comments Med Refill Encounter Details Date Type Department Care Team (Late st Contact Info) Description 05/20/2024 Refill [facility] MED[facility]INE [address] [place] [address] Ethel Krishnan DO [address] [place] [address] Social History Tobacco Use Types Packs/Day Years [...] documented as of this encounter Care Teams Drying Tunnel Operator Relationship Specialty Start Date End Date Ethel Krishnan DO [address] [place] [phone] PCP - General Family Medicine 08/20/18 documented as of this encounter
--- OUTSIDE RECORDS SUMMARY | 2025-05-21 10:45 | XMS_ITS | Encounter Summary ---
Author Organization [employer] Address [address] [place] [address] Care Team Providers Care Vp Ad Products And Planning Name Role Phone Ethel Krishnan DO Primary Care Provider Reason for Visit * Reason Onset Date Comments Nurse Triage 01/31/2024 Encounter Details Date Type Department Care Team ([facility] st Contact Info) Description 01/31/2024 Telephone [facility] MEDICINE [address] [place] [address] Ethel Krishnan DO [address] [place], [place] [phone] Nurse Triage Social History Tobacco Use Types [...] documented as of this encounter Care Teams Vp Ad Products And Planning Relationship Specialty Start Date End Date Ethel Krishnan DO [address] [place] [address] PCP - General Family Medicine 08/20/18 documented as of this encounter
--- OUTSIDE RECORDS SUMMARY | 2025-05-21 10:45 | XMS_ITS | Encounter Summary ---
Author Organization [employer] Address [address] [place] [address] Care Team Providers Care Senior Application Software Engineer Name Role Phone Ethel Krishnan DO Primary Care Provider Reason for Visit * Reason Comments Med Refill Encounter Details Date Type Department Care Team (Late st Contact Info) Description 03/12/2023 Refill [facility] MEDICINE [address] [place] [address] Ethel Krishnan DO [address] [place] [address] Social History Tobacco Use Types Packs/Day Years [...] documented as of this encounter Care Teams Senior Application Software Engineer Relationship Specialty Start Date End Date Ethel Krishnan DO [address] [place] [address] PCP - General Family Medicine 08/20/18 documented as of this encounter
--- OUTSIDE RECORDS SUMMARY | 2025-05-21 10:45 | XMS_ITS | Encounter Summary ---
Author Organization [email or web address] Address [address] [place] [address] Care Team Providers Care Soil Surveyor Name Role Phone Ethel Krishnan DO Primary Care Provider [phone]- [phone] Encounter Details Date Type Department Care Team ([facility] st Contact Info) Description 10/04/2024 Orders Only [facility] MEDICINE [address] [place] [address] Provider, MD Abdias Social History Tobacco Use [...] documented as of this encounter Care Teams Soil Surveyor Relationship Specialty Start Date End Date Ethel Krishnan DO [address] [place] [address] PCP - General Family Medicine 08/20/18 documented as of this encounter
--- OUTSIDE RECORDS SUMMARY | 2025-05-21 10:45 | XMS_ITS | Clinical Summary ---
Author Organization [employer] Address [address] [place] [address] Care Team Providers Care Assembler Product Name Role Phone Ariella Ethel Primary Care Provider + [phone] Allergies No known active allergies Medications * [...] needed for anxiety. 30 capsule 2 4 Active fluticasone (Flonase) 50 MCG/ACT nasal sprayIndication s:Bilateral otitis media with effusion ADMINISTER 1-2 SPRAYS INTO EACH NOSTRIL ONCE PER DAY. SHAKE GENTLY. BEFORE FIRST USE, PRIME PUMP. AFTER USE, CLEAN TIP AND REPLACE CAP. 48 mL 4 Active topiramate (Topamax) 50 MG tablet [...] g 3 5 Active D3 50 MCG (1999 [place]) tabletIndicatio ns:Vitamin D deficiency TAKE 1 TABLET BY MOUTH EVERY DAY 90 tablet 1 5 Active Active Problems Problem Noted Date Diagnosed Date Moderate episode of recurren t major depressive disorder (CMS/HCC) 04/08/2024 Healthcare maintenance 11/12/2023 Assessment & Plan (11/12/2023 2:45 PM EDT): -she declines flu vaccine -she declines COVID vaccine -s/p Tdap Sep 2019 -she declines pneumovax -Hep A/B immune -pap wnl/HPV pos Mar 2016, s/p LEEP May 2016, pap with ASCUS Jan 2017, s/p negative colpo Apr 2017, pap nml/HPV negative 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, will have pap appt scheduled -fasting labs [...] labs -referred for sleep study -advised contact [facility] if sx change or worsen Sleep-disordered [...] Encounters Date Type Department Care Team Description 04/13/2025 Orders Only [facility] MEDICINE [address] [place] [address] Ethel Krishnan DO Abnormal computed tomography angiography of head (Primary Dx) 04/09/2025 Travel from Last 3 Months Immunizations Immunization [...] Vaccines (2 - 3-dose series) 12/20/2009 11/22/2009 Mammogram 2024 COVID-19 Vaccine (1 - 2023- season) 2025 Influenza Vaccine (#1) 2025 Depression Screening 01/21/2026 01/21/2025, 01/22/20 SDOH Screening 01/21/2026 01/21/2025 Tobacco Screening 01/21/2026 [...] Procedure Name Priority Date/Time Associated Diagnosis Comments HEPATITIS C AB W/REFL TO HCV RNA, [...] Recently Relevant to Health Maintenance Results * Hepatitis C Antibody with Reflex to HCV, RNA, Quantitative, Real-Time PCR (08/29/2024 10:43 AM EST) Hepatitis C Antibody Nonreactive Nonreactive [facility] Comment:Antibodies to HCV no t detected; does not exclude early acuteHCV infection. Blood Venous blood specimen / Unknown 08/29/2024 10:43 AM EST 08/29/2024 11:33 AM EST us Ethel Krishnan DO LAB BLOOD ORDERABLES Final R esult Performing Organization Address City/[facility]/ZIP Co de Phone Number [facility] [address] [place] [address] [phone] * HIV-1/2 Antigen and Antibodies, Fourth Generation, with Reflexes (08/29/2024 10:43 AM EST) HIV AB/AG Nonreactive Nonreactive [facility] Comment:HIV-1 p24 Ag and/or HIV-1/HIV-2 Ab not detected.A test result that is nonreactive does not exclude thepossibility of exposure to or infection with HIV-1 and/orHIV-2. Nonreactive results in this assay for individualswith prior exposure to HIV-1 and/or HIV-2 may be due toantigen and antibody levels that are below the limit ofdetection of this assay.The [employer] HIV Ag/Ab Combo assay result andsupplemental assay results should be interpreted inconjunction with the patient's clinical presentation,history and other laboratory results. If the results areinconsistent with clinical evidence, additional testing issuggested to confirm the result. Blood Venous blood specimen / Unknown 08/29/2024 10:43 AM EST 08/29/2024 11:33 AM EST Ethel Krishnan DO LAB BLOOD ORDERABLES Final R esult Performing Organization Address [facility]/ZIP Co de Phone Number [facility] [address] [place] [address] [phone] * (ABNORMAL) Lipid Panel, Standard (08/29/2024 10:43 AM EST) Triglycerides 136 <150 mg/dL [facility] Comment:Desirable Triglyceri de: less than 150 mg/dLBorderline High Triglyceride 150-199 mg/dLHigh Triglyceride: 200-499 mg/dLVery High Triglyceride: greater than or equal to 5OO mg/dL Cholesterol 184 <200 mg/dL [facility] Comment:Desirable Cholestero l: less than 200 mg/dLBorderline High Cholesterol: 200-239 mg/dLHigh Cholesterol: greater than 239 mg/dL LDL Cholesterol Calculated 101(H) <100 mg/dL [facility] Comment:Desirable LDL: less than 100 mg/dLNear Optimal/Above Optimal LDL: 110- 129 mg/dLBorderline High LDL: 130-159 mg/dLHigh LDL: 160-189 mg/dLVery High LDL: greater than or equal to 190 mg/dL HDL Cholesterol 56 >40 mg/dL [facility] Comment:Desirable HDL: great er than 40 mg/dL Note: This HDL assay may give artificially low results in patients with liver disease. Blood Venous blood specimen / Unknown 08/29/2024 10:43 AM EST 08/29/2024 11:33 AM EST Ethel Krishnan DO LAB BLOOD ORDERABLES Final R esult [facility] [address] [place] [address] [phone] * HM PAP/HPV (08/28/2024 6:15 PM EST) Historical Provider HEALTH MAINTENANCE Final Result from Last 3 Months or Most Recently Relevant to Health Maintenance Insurance [facility] [place] AD[place] Care Teams Assembler Product Relationship Specialty Start Date End Date Ethel Krishnan DO [address] [place] [address] PCP - General Family Medicine 08/20/18
--- OUTSIDE RECORDS SUMMARY | 2025-05-21 10:45 | XMS_ITS | Encounter Summary ---
Author Organization [employer] Address [address] [place] [address] Care Team Providers Care Certified Solid Waste Facility Operator Name Role Phone Ethel Krishnan DO Primary Care Provider Reason for Visit * Reason Onset Date Comments Appointment Request 07/08/2024 Encounter Details Date Type Department Care Team ([facility] st Contact Info) Description 07/08/2024 Telephone [facility] MEDICINE [address] [place] [address] Ethel Krishnan DO [address] [place], [place] [phone] Appointment Request Social History Tobacco Use Types [...] Pt denied any concerns. Contact pt at [phone] documented in this encounter Plan of Treatment Not on file documented as of this encounter Visit Diagnoses Not on filedocumented in this encounter Additional Health Concerns Assessment Noted Time PHQ-9 Depression Total Score: 7 03/26/20 24 10:08 AM EDT documented as of this encounter Care Teams Certified Solid Waste Facility Operator Relationship Specialty Start Date End Date Ethel Krishnan DO [address] [place] [phone] PCP - General Family Medicine 08/20/18 documented as of this encounter
--- OUTSIDE RECORDS SUMMARY | 2025-05-21 10:45 | XMS_ITS | Encounter Summary ---
Author Organization [employer] Address [address] [place] [address] Care Team Providers Care Sorting Livestock Worker Name Role Phone Ethel Krishnan DO Primary Care Provider [phone] Reason for Visit * Reason Onset Date Comments Appointment Request 02/15/2024 Encounter Details Date Type Department Care Team ([facility] st Contact Info) Description 02/15/2024 Telephone [facility] MEDICINE [address] [place] [address] Ethel Krishnan DO [address] [place], [place] [phone] Appointment Request Social History Tobacco Use Types [...] recall for February. Please contact pt at [phone] documented in this encounter Plan of Treatment Not on file documented as of this encounter Visit Diagnoses Not on filedocumented in this encounter Additional Health Concerns Assessment Noted Time PHQ-9 Depression Total Score: 0 02/02/20 23 11:15 AM EDT documented as of this encounter Care Teams Sorting Livestock Worker Relationship Specialty Start Date End Date Ethel Krishnan DO [address] [place] [address] PCP - General Family Medicine 08/20/18 documented as of this encounter
== END 2025-05-21 09:41 | disposition home or self-care (01) ==
LOC: HO.MRI 09:40
PROVIDERS: PCP Family Medicine; Visit Provider Family Medicine
DX: R93.0 Abnormal findings on diagnostic imaging of skull and head, not elsewhere classified (principal)
CPT/HCPCS: 70544

== ENCOUNTER 2025-07-28 12:18 | Outpatient (REF) | payer MEDICAID, SELFPAY ==
--- NOTE | ~2025-07-28 | XR_ITS ---
EXAMINATION: XR KNEE, LEFT CLINICAL INFORMATION: worsening L knee pain COMPARISON: 12/13/2021. TECHNIQUE: Four views of the left knee. FINDINGS: No fracture, dislocation, or suspicious bone lesion. There is normal alignment. Moderate degenerative arthrosis of the medial and patellofemoral compartments, with milder changes in the lateral compartment. Mild widening of the lateral compartment with minimal varus angulation of the knee. There is a large bulky suprapatellar osteophyte. This is best seen on the patellofemoral view and a lateral projection. Mild spurring of the tibial spines. There is a moderate sized suprapatellar joint effusion suspected. No soft tissue abnormality. XR/XR knee LT 4V IMPRESSION: 1. Moderate tricompartmental osteoarthrosis, with a large suprapatellar medial bulky osteophyte. 2. Mild varus angulation of the joint. 3. Moderate sized suprapatellar joint effusion suspected. Electronically signed by: Min Aden MD 07/28/2025 01:53 PM [facility]
[2025-07-29 00:37] LABS: Bacterial Vaginosis PCR NEGATIVE (Negative); Candida Group PCR DETECTED (Not Detect); Candida glab krusei PCR NOT DETECTED (Not Detect); Trichomonas vaginalis PCR NOT DETECTED (Not Detect)
[2025-07-29 01:19] LABS: CT PCR NOT DETECTED (Not Detect.); NG PCR NOT DETECTED (Not Detect.)
== END 2025-07-28 12:19 | disposition home or self-care (01) ==
LOC: HO.HHCX 12:18
PROVIDERS: PCP Family Medicine; Visit Provider Family Medicine
DX: M25.562 Pain in left knee (principal); G89.29 Other chronic pain; N89.8 Other specified noninflammatory disorders of vagina; Z20.2 Contact with and (suspected) exposure to infections with a predominantly sexual mode of transmission
CPT/HCPCS: 73564; 81515; 87491; 87591

== ENCOUNTER → 2025-07-28 12:24 | Outpatient (BNV) | payer MEDICAID, SELFPAY | PROVIDERS: PCP Family Medicine; Visit Provider Radiology Diagnostic Radiology | DX: M17.12 Unilateral primary osteoarthritis, left knee (principal) | CPT/HCPCS: 73564 ==